=== PATIENT | female | born 1995 | race Caucasian/White ===

== ENCOUNTER 2017-09-09 00:29 | Emergency (ER) | payer MEDICAID, SELFPAY ==
[2017-09-09 00:30] VITALS: BP 152/87; PULSE 71; RESP 17; TEMP 36.4; O2SAT 100; BMI 30.4
[2017-09-09 01:15] LABS: Amphetamine Urine VISTA NEGATIVE (<1000 ng/mL); Barbiturate Urine VISTA NEGATIVE (< 200 ng/mL); Benzodiazepine Urine VISTA NEGATIVE (< 200 ng/mL); Cocaine Urine VISTA NEGATIVE (< 300 ng/mL); Ecstacy Urine VISTA NEGATIVE (< 500 ng/mL); Methadone Urine VISTA NEGATIVE (< 300 ng/mL); PCP Urine VISTA NEGATIVE (< 25 ng/mL); THC Urine VISTA NEGATIVE (< 50 ng/mL); Vista UDS pH Range 7
[2017-09-09 01:19] LABS: Absolute Lymphocyte Count 3.05 X10^3/ul (0.83-4.51); Absolute Neutrophil Count 1.6 X10^3/uL (2.0-7.7); Basophil# 0.04 X10^3/uL; Basophil% 0.7 % (0-1); Eosinophil# 0.38 X10^3/uL; Eosinophils% 6.6 % (0-5); Hemoglobin 15.2 g/dl (12.0-15.0); Lymphocyte # 3.05 X10^3/ul (4.0); Lymphocyte % 53.3 % (19-41); Mean Corp Hgb Conc 35.3 g/gl (32-36); Mean Corpuscular Hgb 31.7 pg (27.0-32.0); Mean Corpuscular Volume 89.6 fL (81-99); Mean Platelet Vol. 10.5 fl (6.2-12.0); Monocyte# 0.62 X10^3/uL; Monocyte% 10.8 % (0-10); Neutrophil # 1.62 X10^3/uL (2.7-7.7); Neutrophil % 28.4 % (47-70); POSITIVE COUNT NO; POSITIVE DIFFERENTIAL NO; POSITIVE MORPHOLOGY NO; Platelet Count 213 K/mm3 (150-450); RBC Distribution Width CV 12.2 % (11.6-14.6); RBC Distribution Width SD 39.3 fl (35.1-43.9); White Blood Count 5.7 K/mm3 (4.4-11.0)
[2017-09-09 01:37] LABS: Anion Gap 6 (5-15); BUN 15 mg/dL (7-18); BUN/Creat Ratio 16.4 RATIO (10-20); Chloride 105 mmol/L (98-107); Creatinine, Serum 0.92 mg/dL (0.55-1.02); EST Glomerular Filtration Rate 80 mL/min (>60); Est Glom Filt Rate - Afr Amer 97 mL/min (>60); Estimated Creatinine Clearance 89.03 ml/min; Glucose 89 mg/dL (74-106); Potassium 3.4 mmol/L (3.5-5.1); Sodium Level 142 mmol/L (136-145)
[2017-09-09 01:43] LABS: Alcohol, Blood (Medical)-Serum < 3.0 mg/dL
[2017-09-09 01:49] LABS: Valproic Acid (Depakene) Level 37 ug/mL (50-100)
[2017-09-09 01:51] LABS: Pregnancy, Serum, hCG Quali. NEGATIVE Negative (0-9 Nonpreg)
[2017-09-09 02:26] VITALS: BP 128/85; PULSE 93; O2SAT 97
--- NOTE | 2017-09-09 03:37 | ED.DCSUM_ITS ---
- ER Visit Summary Date of Service: 09/09/17 Chief Complaint: Suicidal ideation History of Present Illness: The patient is a [address] Farah and the counseling center. She reports that she has long-standing depression. She has had suicidal thoughts for the past week. She states that she would overdose if she did this. She has not taken anything at this time. She denies a specific plan to do this. Physical Examination: Vitals: Stable. Afebrile. General: Well-nourished and well-developed. Head: Normocephalic atraumatic. Neck: Supple, no lymphadenopathy. No JVD. Nontender. Cardiovascular: Regular rate and rhythm. No murmurs. Respiratory: No respiratory distress. Clear to auscultation bilaterally. Abdominal: Soft, nontender, nondistended, normal bowel sounds. No guarding, rebound, or peritoneal signs. Back: Nontender. Extremities: Nontender, no edema. Skin: Normal color, no rash. Neurologic: Alert and oriented ?3. Cranial nerves II through XII are intact. Normal strength and sensation. Mental status exam: Patient appears their stated age. Good posture and grooming. Good eye contact. Normal rate, volume, and latency of speech. No homicidal ideation. No auditory or visual hallucinations. Flow of thought is logical. Insight and judgment is fair. Test Results: CBC is marked for hemoglobin of 15.2, 7 neutrophils of 28, lymphs at the 53. Chem-7 her potassium 3.4. Depakote level is 37. Patency test is negative. Tox screen is negative. Blood alcohol level 0. Emergency Department Course and Treatment: She has rested comfortably without complaint in the emergency department. Treatment Plan: Patient was seen by the counseling center in the emergency department. They are familiar with her and able to contract for safety. She will be discharged instructions to follow-up tomorrow for a crisis evaluation. Return to emerge from for any worsening thoughts of harming herself. Disposition: To home in improved and stable condition. Impression: 1. Depression. 2. Autism. This note was generated with [employer] dictation software. It may contain incorrect words, spelling, and punctuation that were not noted in review of the chart prior to signing ED Disposition - Plan for ED Patient: Chief Complaint: Suicidal Instructions: ED Depression Referrals: Counseling,Center [GROUP OF PHYSICIANS] - Keep [facility] appointment
[2017-09-09 03:54] VITALS: BP 140/90; PULSE 65; PULSE 71; RESP 18; O2SAT 94
== END 2017-09-09 03:56 | disposition home or self-care (01) ==
PROVIDERS: Emergency Provider Emergency Medicine; Family Provider Internal Medicine; PCP Internal Medicine
DX: F32.9 Major depressive disorder, single episode, unspecified (principal); F84.0 Autistic disorder; F41.9 Anxiety disorder, unspecified; F20.9 Schizophrenia, unspecified; Z79.899 Other long term (current) drug therapy
CPT/HCPCS: 80048; 80164; 80307; 80320; 84703; 85025; 99283; G0480

== ENCOUNTER → 2017-11-11 10:42 | Outpatient (CLI) | payer MEDICAID, SELFPAY ==
[2017-11-11 11:38] LABS: Platelet Count 177 K/mm3 (150-450)
[2017-11-11 12:05] LABS: Valproic Acid (Depakene) Level 33 ug/mL (50-100)
[2017-11-11 12:06] LABS: AST(SGOT) 14 U/L (15-37); Alanine Aminotransfer ALT/SGPT 22 U/L (13-56)
== END ==
PROVIDERS: Family Provider Internal Medicine; PCP Internal Medicine; Visit Provider Psychiatry & Neurology Psychiatry
DX: Z79.899 Other long term (current) drug therapy (principal); F19.10 Other psychoactive substance abuse, uncomplicated; R53.83 Other fatigue
CPT/HCPCS: 36415; 80164; 84450; 84460; 85049

== ENCOUNTER → 2017-12-24 09:58 | Outpatient (CLI) | payer MEDICARE, MEDICAID, SELFPAY ==
[2017-12-24 11:05] LABS: Valproic Acid (Depakene) Level 68 ug/mL (50-100)
== END ==
PROVIDERS: Family Provider Internal Medicine; PCP Internal Medicine; Visit Provider Psychiatry & Neurology Psychiatry
DX: Z79.899 Other long term (current) drug therapy (principal)
CPT/HCPCS: 36415; 80164

== ENCOUNTER 2018-08-25 13:53 | Emergency (ER) | payer MEDICARE, MEDICAID, SELFPAY ==
[2018-05-23 13:28] VITALS: BMI 33.2
[2018-08-25 13:53] VITALS: BP 140/80; PULSE 91; RESP 14; TEMP 36.3; O2SAT 97; BMI 34.9
--- NOTE | 2018-08-25 14:11 | RAD_ITS ---
STUDY: X-RAY - LUMBAR SPINE REASON FOR EXAM: Female, 23 years old. Low back pain following a fall. TECHNIQUE: 3 view(s) of the lumbar spine were obtained. COMPARISON: None FINDINGS: There is straightening of the normal lumbar lordosis. There is no substantial scoliosis. There is a normal alignment of the vertebrae. Normal vertebral bodies and endplates. Normal disc space heights. Posterior angulation of the sacrococcygeal junction. The soft tissue structures are unremarkable. RAD/Lumbar Spine 2 or 3 Views IMPRESSION: There is straightening of the normal lumbar lordosis. Posterior angulation of the sacrococcygeal junction. Electronically Signed: Juventino Ramirez MD at 15:11 EST , Service support ,
--- NOTE | 2018-08-25 14:22 | ED.VISSUMM ---
- ER Visit Summary Date of Service: 08/25/18 Chief Complaint: [] Pain in the coccyx fall slipping on ice today History of Present Illness: The patient is a 23 F [] behavioral health disorders very stable she slipped on ice today landed directly on her bottom she has pain over her coccyx she finished her work duties today and came in for evaluation she has no numbness weakness paresthesias normal bowel bladder habits denies did not injure any other part of her body Physical Examination: [] v Signs are normal General, no distress resting comfortably HEENT is generally unremarkable The neck is supple no adenopathy Cardiovascular, regular rate and rhythm Lungs, clear bilateral Abdomen, soft nontender Extremities, no clubbing cyanosis or edema her back C-spine T-spine lumbar spine nontender she has a very nonspecific pain to the base of the coccygeal area her sacrum there is no bruising or contusion here her pelvis is stable she is able to stand and walk without difficulty she indicates she is able to execute normal work activities with any without any trouble today Neurologic, awake alert answering questions appropriately moving all 4 extremities Test Results: [] Emergency Department Course and Treatment: [] All the above x-rays were obtained that showed nothing acute explained all the above to her she started on Naprosyn she will follow-up with that medication her primary care physicians tomorrow return for change in symptoms Treatment Plan: [] Disposition: [] Home stable Impression: [] Coccygeal injury after fall This note was generated with [employer] dictation software. It may contain incorrect words, spelling, and punctuation that were not noted in review of the chart prior to signing ED Disposition - Plan for ED Patient: Referrals: Yaneli Farah MD [Primary Care Provider] -
--- NOTE | 2018-08-25 14:24 | ED.DEP ---
ED Disposition - Plan for ED Patient: Instructions: ED Sprain Strain Lumbar Prescriptions: Naproxen [Naprosyn] 500 mg PO BID PRN #20 tab Referrals: Yaneli Farah MD [Primary Care Provider] -
[2018-08-25] MEDS: Naproxen 500 MG Tablet PO (14:42)
[2018-08-25 15:46] VITALS: BP 155/103; PULSE 85; RESP 18; O2SAT 97
== END 2018-08-25 15:47 | disposition home or self-care (01) ==
PROVIDERS: Emergency Provider Emergency Medicine; Family Provider Internal Medicine; PCP Internal Medicine
DX: S39.92XA Unspecified injury of lower back, initial encounter (principal); W00.0XXA Fall on same level due to ice and snow, initial encounter; Y93.89 Activity, other specified; Y92.89 Other specified places as the place of occurrence of the external cause; Y99.8 Other external cause status; Z79.899 Other long term (current) drug therapy
CPT/HCPCS: 72100; 99283

== ENCOUNTER → 2018-11-02 | Outpatient (CLI) | payer MEDICARE, MEDICAID, SELFPAY ==
[2018-10-24 15:09] VITALS: BMI 35.1
[2018-11-02 14:10] LABS: Absolute Lymphocyte Count 2.29 X10^3/ul (0.83-4.51); Absolute Neutrophil Count 1.7 X10^3/uL (2.0-7.7); Basophil# 0.04 X10^3/uL; Basophil% 0.9 % (0-1); Eosinophil# 0.12 X10^3/uL; Eosinophils% 2.6 % (0-5); Hematocrit 45.6 % (37-47); Hemoglobin 15.2 g/dl (12.0-15.0); Lymphocyte # 2.29 X10^3/ul (4.0); Lymphocyte % 50.6 % (19-41); Mean Corp Hgb Conc 33.3 g/gl (32-36); Mean Corpuscular Hgb 31.5 pg (27.0-32.0); Mean Corpuscular Volume 94.4 fL (81-99); Mean Platelet Vol. 11.4 fl (6.2-12.0); Monocyte# 0.39 X10^3/uL; Monocyte% 8.6 % (0-10); Neutrophil # 1.69 X10^3/uL (2.7-7.7); Neutrophil % 37.3 % (47-70); Platelet Count 186 K/mm3 (150-450); RBC Distribution Width CV 12.1 % (11.6-14.6); Red Blood Count 4.83 M/mm3 (4.2-5.4); White Blood Count 4.5 K/mm3 (4.4-11.0)
[2018-11-02 14:13] LABS: POSITIVE COUNT NO; POSITIVE DIFFERENTIAL NO; POSITIVE MORPHOLOGY NO
[2018-11-02 14:19] LABS: Valproic Acid (Depakene) Level 71 ug/mL (50-100)
[2018-11-02 14:37] LABS: AST(SGOT) 21 U/L (15-37); Alanine Aminotransfer ALT/SGPT 40 U/L (13-56); Albumin, Serum 3.7 g/dL (3.2-5.0); Alkaline Phosphatase 79 U/L (45-117); Anion Gap 7 (5-15); BUN 12 mg/dL (7-18); BUN/Creat Ratio 12.8 RATIO (10-20); Chloride 106 mmol/L (98-107); Cholesterol 178 mg/dL (200); Creatinine, Serum 0.93 mg/dL (0.55-1.02); EST Glomerular Filtration Rate 78 mL/min (>60); Est Glom Filt Rate - Afr Amer 94 mL/min (>60); Globulin 3.7 g/dL (2.2-4.2); Glucose 86 mg/dL (74-106); High Density Lipoprotein 63 mg/dL; Potassium 3.9 mmol/L (3.5-5.1); Protein, Total 7.4 g/dL (6.4-8.2); Sodium Level 138 mmol/L (136-145); T4 Free Direct 0.96 ng/dL (0.76-1.46); Thyroid Stim Hormone (TSH) 1.25 uIU/mL (0.358-3.74); Triglycerides 199 mg/dL; Very Low Density Lipoprotein 40 mg/dL (5-40)
== END | disposition home or self-care (01) ==
LOC: BIMLAB 09:58
PROVIDERS: Family Provider Internal Medicine; PCP Internal Medicine; Visit Provider Internal Medicine
DX: E66.9 Obesity, unspecified (principal); I10 Essential (primary) hypertension; F25.9 Schizoaffective disorder, unspecified
CPT/HCPCS: 36415; 80053; 80061; 80164; 84439; 84443; 85025

== ENCOUNTER 2019-05-29 08:19 | Emergency (ER) | payer MEDICARE, MEDICAID, SELFPAY ==
[2019-05-05 11:14] VITALS: BMI 37.3
[2019-05-29 08:20] VITALS: BP 121/85; PULSE 71; RESP 17; TEMP 36.8; O2SAT 93; BMI 38.1
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
[2019-05-29 09:16] LABS: Absolute Lymphocyte Count 2.36 X10^3/uL (0.83-4.51); Absolute Neutrophil Count 2.4 X10^3/uL (2.0-7.7); Basophil# 0.04 X10^3/uL; Basophil% 0.7 % (0-1); Eosinophil# 0.07 X10^3/uL; Eosinophils% 1.3 % (0-5); Hematocrit 41.1 % (37-47); Hemoglobin 14.1 g/dL (12.0-15.0); Lymphocyte # 2.36 X10^3/ul (4.0); Lymphocyte % 43.8 % (19-41); Mean Corp Hgb Conc 34.3 g/dL (32-36); Mean Corpuscular Hgb 31.9 pg (27.0-32.0); Mean Platelet Vol. 10.5 fl (6.2-12.0); Monocyte# 0.49 X10^3/uL; Monocyte% 9.1 % (0-10); NRBC Flagged by Analyzer 0 % (0-5); Neutrophil # 2.42 X10^3/uL (2.7-7.7); Neutrophil % 44.9 % (47-70); Platelet Count 193 K/mm3 (150-450); RBC Distribution Width SD 41.3 fl (35.1-43.9); Red Blood Count 4.42 M/mm3 (4.2-5.4); White Blood Count 5.4 K/mm3 (4.4-11.0)
[2019-05-29 09:33] LABS: Internal QC Validated? YES +Cl - CLEAR BKGD; Pregnancy, Serum, hCG Quali. NEGATIVE Negative
[2019-05-29 09:34] LABS: Amphetamine Urine VISTA NEGATIVE (<1000 ng/mL); Barbiturate Urine VISTA NEGATIVE (< 200 ng/mL); Benzodiazepine Urine VISTA NEGATIVE (< 200 ng/mL); Cocaine Urine VISTA NEGATIVE (< 300 ng/mL); Ecstacy Urine VISTA NEGATIVE (< 500 ng/mL); Methadone Urine VISTA NEGATIVE (< 300 ng/mL); PCP Urine VISTA NEGATIVE (< 25 ng/mL); THC Urine VISTA NEGATIVE (< 50 ng/mL); Vista UDS pH Range 6
[2019-05-29 09:40] LABS: ALB/GLOB Ratio 0.9 RATIO (0.9-2.4); AST(SGOT) 13 U/L (15-37); Alanine Aminotransfer ALT/SGPT 24 U/L (13-56); Albumin, Serum 3.3 g/dL (3.2-5.0); Alkaline Phosphatase 79 U/L (45-117); Anion Gap 8 (5-15); BUN 11 mg/dL (7-18); Calcium,Total 8.7 mg/dL (8.5-10.1); Chloride 110 mmol/L (98-107); Creatinine, Serum 0.73 mg/dL (0.55-1.02); EST Glomerular Filtration Rate 103 mL/min (>60); Est Glom Filt Rate - Afr Amer 124 mL/min (>60); Estimated Creatinine Clearance 106.01 ml/min; Globulin 3.6 g/dL (2.2-4.2); Glucose 100 mg/dL (74-106); Potassium 3.9 mmol/L (3.5-5.1); Protein, Total 6.9 g/dL (6.4-8.2); Sodium Level 142 mmol/L (136-145); Thyroid Stim Hormone (TSH) 2.43 uIU/mL (0.358-3.74)
--- NOTE | 2019-05-29 09:42 | NURSING ---
CALLED [facility], TALKED TO [facility]. THEY WILL SEND SOMEONE OVER
[2019-05-29 09:45] LABS: Alcohol, Blood (Medical)-Serum < 3.0 mg/dL
--- NOTE | 2019-05-29 10:05 | ED.RN ---
[facility] called and verifies enroute.
--- NOTE | 2019-05-29 10:29 | NURSING ---
[facility], [facility], here
[2019-05-29 10:37] VITALS: RESP 20
[2019-05-29 11:42] VITALS: RESP 18
== END 2019-05-29 11:43 | disposition home or self-care (01) ==
PROVIDERS: Emergency Provider Emergency Medicine; Family Provider Internal Medicine; PCP Internal Medicine
DX: R44.0 Auditory hallucinations (principal); F43.8 Other reactions to severe stress; F29 Unspecified psychosis not due to a substance or known physiological condition; F41.9 Anxiety disorder, unspecified; F32.9 Major depressive disorder, single episode, unspecified; F84.0 Autistic disorder; I10 Essential (primary) hypertension; Z79.899 Other long term (current) drug therapy
CPT/HCPCS: 80053; 80307; 80320; 84443; 84703; 85025; 99283; G0480

== ENCOUNTER → 2019-08-29 10:17 | Outpatient (CLI) | payer MEDICARE, MEDICAID, SELFPAY ==
[2019-08-11 10:53] VITALS: BMI 38.2
[2019-08-29 12:16] LABS: Platelet Count 230 K/mm3 (150-450)
[2019-08-29 12:43] LABS: Valproic Acid (Depakene) Level 49 ug/mL (50-100)
[2019-08-29 14:05] LABS: AST(SGOT) 12 U/L (15-37); Alanine Aminotransfer ALT/SGPT 24 U/L (13-56); Cholesterol 189 mg/dL (200); High Density Lipoprotein 64 mg/dL; Prolactin 21.9 ng/mL; Triglycerides 163 mg/dL; Very Low Density Lipoprotein 33 mg/dL (5-40)
== END ==
PROVIDERS: PCP Internal Medicine; Referring Provider Psychiatry & Neurology Psychiatry; Visit Provider Psychiatry & Neurology Psychiatry
DX: F19.10 Other psychoactive substance abuse, uncomplicated (principal); R53.83 Other fatigue; Z79.899 Other long term (current) drug therapy
CPT/HCPCS: 36415; 80061; 80164; 82140; 83036; 84146; 84450; 84460; 85049

== ENCOUNTER → 2020-02-07 10:14 | Outpatient (CLI) | payer MEDICARE, MEDICAID, SELFPAY ==
[2020-01-17 15:50] VITALS: BMI 38.1
[2020-02-07 11:04] LABS: Platelet Count 198 K/mm3 (150-450)
[2020-02-07 11:14] LABS: AST(SGOT) 21 U/L (15-37); Alanine Aminotransfer ALT/SGPT 49 U/L (13-56)
[2020-02-07 11:20] LABS: Valproic Acid (Depakene) Level 85 ug/mL (50-100)
[2020-02-07 15:52] LABS: Bacteria 0 SEEN /hpf (None Seen); Mucous, Urine 0 SEEN /hpf (<or=2+); Red Blood Cells-Urine 0 SEEN /hpf (0-5); White Blood Cells 0 SEEN /hpf (0-5)
[2020-02-07 15:59] LABS: Absolute Lymphocyte Count 2.48 X10^3/uL (0.83-4.51); Absolute Neutrophil Count 2.3 X10^3/uL (2.0-7.7); Basophil# 0.06 X10^3/uL; Basophil% 1.1 % (0-1); Eosinophil# 0.27 X10^3/uL; Eosinophils% 4.8 % (0-5); Hematocrit 41.4 % (37-47); Hemoglobin 13.5 g/dL (12.0-15.0); Lymphocyte # 2.48 X10^3/ul (4.0); Lymphocyte % 43.7 % (19-41); Mean Corp Hgb Conc 32.6 g/dL (32-36); Mean Corpuscular Hgb 31.5 pg (27.0-32.0); Mean Corpuscular Volume 96.7 fL (81-99); Monocyte# 0.53 X10^3/uL; Monocyte% 9.3 % (0-10); NRBC Flagged by Analyzer 0 % (0-5); Neutrophil # 2.32 X10^3/uL (2.7-7.7); Neutrophil % 40.7 % (47-70); Platelet Count 242 K/mm3 (150-450); RBC Distribution Width SD 41.7 fl (35.1-43.9); Red Blood Count 4.28 M/mm3 (4.2-5.4); White Blood Count 5.7 K/mm3 (4.4-11.0)
[2020-02-07 16:16] LABS: Anion Gap 5 (5-15); BUN 12 mg/dL (7-18); BUN/Creat Ratio 15.4 RATIO (10-20); Calcium,Total 8.9 mg/dL (8.5-10.1); Chloride 107 mmol/L (98-107); Creatinine, Serum 0.78 mg/dL (0.55-1.02); EST Glomerular Filtration Rate 95 mL/min (>60); Est Glom Filt Rate - Afr Amer 115 mL/min (>60); Glucose 100 mg/dL (74-106); Potassium 4.1 mmol/L (3.5-5.1); Sodium Level 140 mmol/L (136-145)
[2020-02-07 17:18] LABS: Color, Urine Yellow (Yellow); Glucose, Dipstick Normal (Normal); Ketone-Dipstick 5 mg/dl (Negative); Leukocyte Esterase-Dipstick Negative /ul (Negative); Nitrite-Dipstick Negative (Negative); Occult Blood-Urine Negative /ul (Negative); Protein-Dipstick Negative (Negative); Specific Gravity, Urine 1.015 (1.002-1.030); Urine Bilirubin Dipstick Negative (Negative); Urine Clarity Cloudy (Clear); Urine Urobilinogen Normal (Normal)
[2020-02-07 17:36] LABS: Amorphous Sediment 1+; Squamous Epithelial Cells - UA 0-5 SEEN /hpf (5-10)
== END ==
PROVIDERS: PCP Internal Medicine; Referring Provider Psychiatry & Neurology Psychiatry; Visit Provider Psychiatry & Neurology Psychiatry
DX: F19.10 Other psychoactive substance abuse, uncomplicated (principal); R53.83 Other fatigue; M79.651 Pain in right thigh; Z79.899 Other long term (current) drug therapy
CPT/HCPCS: 36415; 80048; 80164; 81001; 82140; 84450; 84460; 85025; 85049; 97110

== ENCOUNTER 2020-02-15 16:00 | Outpatient (RCR) | payer MEDICARE, MEDICAID, SELFPAY ==
[2020-01-17 15:50] VITALS: BMI 38.1
--- NOTE | 2020-01-24 16:51 | HP.PTEVAL_ITS ---
Patient's Visit Information JUAN RAZA is a 25 year old F referred to Physical Therapy by Dr. Yaneli Farah MD with a diagnosis of Thigh Pain. Date of Evaluation: 01/24/20 Physical Therapist: Marielos Michael DPT - Visit Plan Frequency: 2x /Week Duration: 4 Weeks Plan: Focus on core strength/stabilization- Possible need for extension bias exercise - Subjective Right thigh has been cramping a lot for a couple of months- the pain started in her thigh and has no moved to the calf. The pain comes and goes. Eases: walking Agg: sitting and then standing. Normally when she walks it doesnt bother her but sitting does. She has no back pain. The whole back of the leg bothers her. Feels she pulled her thigh when running- but she is unsure- she might have been sprinting and it bothered her. Worst: 8/10 Best: 10. When s he laying down she has no pain at all. Sleep: not disturbed. Workout: ellip, cardio and arm/ab weights- 3-5x a week- at [employer] or at home- she walks and dances a lot too. No N/T in the leg. Describes the pain as cramping, throbbing, burning pain. If she lays down or gets up the pain goes away immediatly. Sits a lot during the day. Work: does not work. 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 No problems with stairs. PMHX/Meds: scanned in chart. - Objective Posture: FH, RS- increased lumbar lordosis in standing- sitting slumped posture. Gait: no deviation noted. HR/TR: able. SLS: 10 sec then LOB. Senstion/Reflex: WNL. ROM: WNL in all planes-hip, knee,ankle lumber: flexion: hands to knees with pain, extn: WNL, SB/ROT: WNL. Strength: Ankle: 5/5, Knee: 4+/5 Hip: 4-/5 throughout with signficant discomfort with testing. Flex: HS: severe, Gastroc: severe. Palpatoin: tender along parapsinals of the lumber spine, gluts, greater troch and hamstring. Special Test: Slump: positive, Dural signs: positive on the right, Extension: diminishes symptoms- Flexion: increasese s/s - Goals Goal 1:: Patient will be I with HEP and progression Goal Time Frame: 4-6 Weeks Goal 2:: Patient will maintain proper posture t/o tx session to demo increased core s/s Goal Time Frame: 4-6 Weeks Goal 3:: Patient will report no radiating s/s down her right leg Goal Time Frame: 4-6 Weeks - Rehabilitation Potential Physical Therapy Diagnosis: Patient presents with hypomobility- she has decreased strength, flex, muscular endurance leading to poor posture and increased radiating pain. Rehabilitation Potential: Fair - Anticipated Interventions Patient/Client Instruction: Educate patient on: Benefits of Fitness Program Therapeutic Exercise to Include: Strength training, Endurance training, Balance training, Coordination, Agility training, Body mechanics, Postural training, Flexibilty training, Gait and locomotor training, Neuromotor development, Passive ROM, Active ROM, Dynamic Lumbar Stabilization, Marcos Exercises, Scapular Strength/Stabilization TENS: Yes Cryotherapy (ice pack, ice massage): Yes Thermo therapy (hot pack): Yes Ultrasound (thermal/non thermal): Yes Thank you for the opportunity to evaluate your patient. For Medicare and Medicare HMO plans, please review the plan of care and approve it. It will need to be FAXED BACK to us at [phone] for Medicare purposes. For Medicare only, by signing this I certify the plan of care. Please let me know if there are questions or concerns regarding this plan of care. Physician Signature: Date:
--- NOTE | 2020-04-01 16:36 | HP.PT.NRP ---
JUAN RAZA was seen in my office for initial evaluation on 01/24/20. The following Plan of Care was established for this patient: Initial Frequency: 2x /Week Initial Duration: 4 Weeks Patient/Client Instruction: Educate patient on: Benefits of Fitness Program Therapeutic Exercise to Include: Strength training, Endurance training, Balance training, Coordination, Agility training, Body mechanics, Postural training, Flexibilty training, Gait and locomotor training, Neuromotor development, Passive ROM, Active ROM, Dynamic Lumbar Stabilization, Marcos Exercises, Scapular Strength/Stabilization TENS: Yes Cryotherapy (ice pack, ice massage): Yes Thermo therapy (hot pack): Yes Ultrasound (thermal/non thermal): Yes This patient was last seen in our office . Pertinent comments regarding their Physical therapy will appear below: Patient has not returned to PT in over 6 weeks- appropriate for d/c and return to MD for further evaluation as needed. At this point I will be discontinuing this patient from physical therapy. I would be happy to see this patient again in the future if found appropriate by the physician. Thank you! ROSLYN HinsonT
== END 2020-02-15 19:00 | disposition home or self-care (01) ==
LOC: PT 16:00
PROVIDERS: PCP Internal Medicine; Referring Provider Internal Medicine; Visit Provider Internal Medicine
DX: M79.651 Pain in right thigh (principal)
CPT/HCPCS: 97035; 97110; 97162

== ENCOUNTER 2020-03-06 17:09 | Emergency (ER) | payer MEDICARE, MEDICAID, SELFPAY ==
[2020-02-07 15:19] VITALS: BMI 38.1
[2020-03-06 17:09] VITALS: BP 144/92; PULSE 67; RESP 15; TEMP 36.7; O2SAT 98; BMI 38.8
[2020-03-06 17:51] LABS: Absolute Lymphocyte Count 2.61 X10^3/uL (0.83-4.51); Absolute Neutrophil Count 4.1 X10^3/uL (2.0-7.7); Basophil# 0.05 X10^3/uL; Basophil% 0.7 % (0-1); Eosinophil# 0.14 X10^3/uL; Eosinophils% 1.9 % (0-5); Hematocrit 42.7 % (37-47); Hemoglobin 14.8 g/dL (12.0-15.0); Lymphocyte # 2.61 X10^3/ul (4.0); Lymphocyte % 34.8 % (19-41); Mean Corp Hgb Conc 34.7 g/dL (32-36); Mean Corpuscular Hgb 32.5 pg (27.0-32.0); Mean Corpuscular Volume 93.6 fL (81-99); Monocyte# 0.58 X10^3/uL; Monocyte% 7.7 % (0-10); NRBC Flagged by Analyzer 0 % (0-5); Neutrophil # 4.08 X10^3/uL (2.7-7.7); Neutrophil % 54.5 % (47-70); Platelet Count 250 K/mm3 (150-450); RBC Distribution Width CV 11.7 % (11.6-14.6); Red Blood Count 4.56 M/mm3 (4.2-5.4); White Blood Count 7.5 K/mm3 (4.4-11.0)
[2020-03-06 18:05] LABS: Amphetamine Urine VISTA NEGATIVE (<1000 ng/mL); Barbiturate Urine VISTA NEGATIVE (< 200 ng/mL); Benzodiazepine Urine VISTA NEGATIVE (< 200 ng/mL); Cocaine Urine VISTA NEGATIVE (< 300 ng/mL); Ecstacy Urine VISTA NEGATIVE (< 500 ng/mL); Methadone Urine VISTA NEGATIVE (< 300 ng/mL); PCP Urine VISTA NEGATIVE (< 25 ng/mL); THC Urine VISTA NEGATIVE (< 50 ng/mL); Vista UDS pH Range 7
[2020-03-06 18:06] LABS: Anion Gap 5 (5-15); BUN 17 mg/dL (7-18); BUN/Creat Ratio 20.8 RATIO (10-20); Calcium,Total 9.4 mg/dL (8.5-10.1); Chloride 109 mmol/L (98-107); Creatinine, Serum 0.82 mg/dL (0.55-1.02); EST Glomerular Filtration Rate 90 mL/min (>60); Est Glom Filt Rate - Afr Amer 108 mL/min (>60); Estimated Creatinine Clearance 97.33 ml/min; Glucose 85 mg/dL (74-106); Potassium 3.5 mmol/L (3.5-5.1); Sodium Level 140 mmol/L (136-145)
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
[2020-03-06 18:27] VITALS: RESP 16
[2020-03-06 18:28] LABS: Internal QC Validated? YES +Cl - CLEAR BKGD; Pregnancy, Serum, hCG Quali. NEGATIVE Negative
[2020-03-06 18:30] LABS: Alcohol, Blood (Medical)-Serum < 3.0 mg/dL
[2020-03-06 18:52] LABS: Probe Check PASS; Specimen Processing Control PASS
[2020-03-06 19:03] VITALS: RESP 16
--- NOTE | 2020-03-06 19:30 | CM.ED ---
SOCIAL WORK Referral called and faxed to [facility]. Awaiting acceptance at this time. Ariane Knott, MANAGER IMMUNOLOGY, DIGITAL CAMERA TECHNICIAN
--- NOTE | 2020-03-06 19:34 | ED.VISSUMM ---
- ER Visit Summary Date of Service: 03/06/20 Chief Complaint: Hearing voices and suicidal ideation History of Present Illness: The patient is a 25 F 3 of schizoaffective disorder and autism. Also hypertension. Patient states she has been hearing voices for the last several weeks. They are telling her either overdose or to cut herself. She has had a prior suicide attempt years ago. She has had prior psychiatric admissions. She denies any actual attempt at this time. Physical Examination: Young female no acute distress vital signs stable afebrile. Does not look septic or toxic. H EENT exam normal. Pupils are unreactive light. No signs of trauma. No smell of alcohol. No signs of toxidrome. Neck nontender. No trauma. No lymphadenopathy. Lungs clear to auscultation bilaterally. Heart regular rhythm no murmur. Rate about 65. Chest were nontender. Abdomen soft nontender. No signs of trauma. Extremities moves all 4. Neurovascular intact. Nontender. No lacerations. Normal range of motion and motor strength. Back nontender. Neurologically she is awake and alert with no focal motor deficits. Test Results: CBC unremarkable white count of 7. Hemoglobin 14. Chemistries unremarkable normal creatinine gap. Serum test negative. Tox screen negative. Alcohol level negative. COVID test negative. Emergency Department Course and Treatment: ED mental health evaluation. commissary worker is also talk to the patient. She is going to be transferred to a psychiatric facility. Treatment Plan: Transfer to a psychiatric facility. Repeat exam patient is doing well at 1930 3 PM. Disposition: Answered a psychiatric facility Impression: Acute on chronic psychiatric illness Auditory elucidation's Suicidal ideation History of schizoaffective disorder This note was generated with [employer] dictation software. It may contain incorrect words, spelling, and punctuation that were not noted in review of the chart prior to signing ED Disposition - Plan for ED Patient: Referrals: Brando Diaz MD [Primary Care Provider] -
[2020-03-06 20:13] VITALS: RESP 18
--- NOTE | 2020-03-06 20:37 | CM.ED ---
SOCIAL WORK Call from Maurizio with [facility]. Patient accepted by Dr. Rangel to the [facility] unit. Nurse to call report to . [facility] [employer] to set up transport. Staff patient and patient's mother alejandro. Ariane Knott, PLATE MOLDER, GANG MOWER OPERATOR
[2020-03-06 21:47] VITALS: BP 144/98; PULSE 80; RESP 15; O2SAT 99
[2020-03-06 22:03] VITALS: RESP 14
== END 2020-03-07 00:11 | disposition home or self-care (01) ==
LOC: ED 18:30
PROVIDERS: Emergency Provider Emergency Medicine; PCP Family Medicine
DX: R45.851 Suicidal ideations (principal); I10 Essential (primary) hypertension
CPT/HCPCS: 80048; 80307; 80320; 84703; 85025; 87635; 99282; G0480; U0003

== ENCOUNTER 2020-08-11 02:32 | Emergency (ER) | payer MEDICARE, MEDICAID, SELFPAY ==
[2020-08-11 02:33] VITALS: BP 155/95; PULSE 63; RESP 16; TEMP 36.6; O2SAT 98; BMI 40.6
--- NOTE | 2020-08-11 02:46 | ED.DCSUM_ITS ---
- ER Visit Summary Date of Service: 08/11/20 Chief Complaint: Suicidal and homicidal thoughts History of Present Illness: The patient is a 25 F who presents with homicidal thoughts as well as some passive suicidal thoughts. She states that they got worse today. She states that she has been having more bad days recently. She keeps telling me she points to let go of the past. She talks about past roommates and classmates and about how she wants to hurt them. She also has voices telling her to kill herself. She has been hospitalized previously for this issue. Her last one was April 2020. She has a history of schizoaffective disorder. She states that she has been taking her medications but it sounds like she has been taking them irregularly. Physical Examination: Vital signs reviewed. HEENT exam unremarkable. Heart is regular rate and rhythm without murmurs. Lungs are clear to auscultation. Abdomen is soft and nontender. Extremities reveal no edema. Skin exam normal. Neurologic exam normal. The patient does have a flat affect. She does voice suicidal and homicidal thoughts. Her insight and judgment are poor. Test Results: Laboratory studies, , toxicology and alcohol are unremarkable Emergency Department Course and Treatment: Patient was evaluated by crisis. We both feel that due to the patient's command hallucinations that she should be transferred to a psychiatric facility. Patient is awaiting transfer at this time. Treatment Plan: [] Disposition: Transfer Impression: Suicidal ideation, command hallucinations, homicidal ideation This note was generated with [employer] dictation software. It may contain incorrect words, spelling, and punctuation that were not noted in review of the chart prior to signing ED Disposition - Plan for ED Patient: Referrals: Brando Diaz MD [Primary Care Provider] -
[2020-08-11 03:11] LABS: Absolute Lymphocyte Count 3.52 X10^3/uL (0.83-4.51); Absolute Neutrophil Count 2.3 X10^3/uL (2.0-7.7); Basophil# 0.04 X10^3/uL; Basophil% 0.6 % (0-1); Eosinophil# 0.12 X10^3/uL; Eosinophils% 1.9 % (0-5); Hematocrit 41.7 % (37-47); Hemoglobin 13.9 g/dL (12.0-15.0); Lymphocyte # 3.52 X10^3/ul (4.0); Lymphocyte % 54.3 % (19-41); Mean Corp Hgb Conc 33.3 g/dL (32-36); Mean Corpuscular Hgb 30.6 pg (27.0-32.0); Mean Corpuscular Volume 91.9 fL (81-99); Mean Platelet Vol. 11.2 fl (6.2-12.0); Monocyte# 0.54 X10^3/uL; Monocyte% 8.3 % (0-10); NRBC Flagged by Analyzer 0 % (0-5); Neutrophil # 2.25 X10^3/uL (2.7-7.7); Neutrophil % 34.7 % (47-70); Platelet Count 222 K/mm3 (150-450); RBC Distribution Width CV 12.3 % (11.6-14.6); RBC Distribution Width SD 40.9 fl (35.1-43.9); Red Blood Count 4.54 M/mm3 (4.2-5.4); White Blood Count 6.5 K/mm3 (4.4-11.0)
[2020-08-11 03:28] LABS: Amphetamine Urine VISTA NEGATIVE (<1000 ng/mL); Barbiturate Urine VISTA NEGATIVE (< 200 ng/mL); Benzodiazepine Urine VISTA NEGATIVE (< 200 ng/mL); Cocaine Urine VISTA NEGATIVE (< 300 ng/mL); Ecstacy Urine VISTA NEGATIVE (< 500 ng/mL); Methadone Urine VISTA NEGATIVE (< 300 ng/mL); PCP Urine VISTA NEGATIVE (< 25 ng/mL); THC Urine VISTA NEGATIVE (< 50 ng/mL); Vista UDS pH Range 5
[2020-08-11 03:31] LABS: Anion Gap 7 (5-15); BUN 18 mg/dL (7-18); BUN/Creat Ratio 22.5 RATIO (10-20); Calcium,Total 9.6 mg/dL (8.5-10.1); Chloride 105 mmol/L (98-107); EST Glomerular Filtration Rate 92 mL/min (>60); Est Glom Filt Rate - Afr Amer 111 mL/min (>60); Estimated Creatinine Clearance 95.89 ml/min; Glucose 97 mg/dL (74-106); Potassium 3.5 mmol/L (3.5-5.1); Sodium Level 140 mmol/L (136-145)
[2020-08-11 03:36] LABS: Internal QC Validated? YES +Cl - CLEAR BKGD; Pregnancy, Serum, hCG Quali. NEGATIVE Negative
[2020-08-11 04:02] VITALS: RESP 15
[2020-08-11 04:16] LABS: Alcohol, Blood (Medical)-Serum < 3.0 mg/dL
--- NOTE | 2020-08-11 04:33 | ED.RN ---
CALLED CRISIS AND FAXED THE PAPER WORK TO CRISIS. CRISIS CALLED TO EVALUATE THE PATIENT.
[2020-08-11 06:07] VITALS: BP 135/76; PULSE 80; RESP 16; O2SAT 98
--- NOTE | 2020-08-11 10:32 | NURSING ---
PER CRISIS; TOUCHING BASE WITH [facility] TO SEE WHAT PROGRESS HAS BEEN MADE ON ACCEPTANCE OF PT. WILL CALL US WITH AN UPDATE.
[2020-08-11 11:03] VITALS: BP 150/69; PULSE 88; RESP 16; O2SAT 99
== END 2020-08-11 11:17 ==
PROVIDERS: Emergency Provider Emergency Medicine; PCP Family Medicine
DX: R45.851 Suicidal ideations (principal); R45.850 Homicidal ideations; I10 Essential (primary) hypertension; F25.9 Schizoaffective disorder, unspecified
CPT/HCPCS: 36415; 80048; 80307; 82077; 84703; 85025; 87426; 99285

== ENCOUNTER 2021-01-01 13:58 | Emergency (ER) | payer MEDICARE, MEDICAID, SELFPAY ==
[2021-01-01 14:00] VITALS: BP 136/92; PULSE 90; RESP 16; TEMP 36.1; O2SAT 97; BMI 34.8
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
--- NOTE | 2021-01-01 14:25 | ED.RN ---
PT IS NOT CURRENTLY SUICIDAL PER ED MD, NO SITTER NEEDED.
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
[2021-01-01 14:46] LABS: Absolute Lymphocyte Count 1.79 X10^3/uL (0.83-4.51); Absolute Neutrophil Count 1.6 X10^3/uL (2.0-7.7); Basophil# 0.03 X10^3/uL; Basophil% 0.7 % (0-1); Eosinophil# 0.03 X10^3/uL; Eosinophils% 0.7 % (0-5); Hematocrit 40.3 % (37-47); Lymphocyte # 1.79 X10^3/ul (0.83-4.51); Lymphocyte % 43.4 % (19-41); Mean Corp Hgb Conc 34.7 g/dL (32-36); Mean Corpuscular Hgb 31.5 pg (27.0-32.0); Mean Corpuscular Volume 90.8 fL (81-99); Mean Platelet Vol. 10.7 fl (6.2-12.0); Monocyte# 0.64 X10^3/uL; Monocyte% 15.5 % (0-10); NRBC Flagged by Analyzer 0 % (0-5); Neutrophil # 1.62 X10^3/uL (2.7-7.7); Neutrophil % 39.5 % (47-70); Platelet Count 217 K/mm3 (150-450); RBC Distribution Width CV 11.9 % (11.6-14.6); RBC Distribution Width SD 39.7 fl (35.1-43.9); Red Blood Count 4.44 M/mm3 (4.2-5.4); White Blood Count 4.1 K/mm3 (4.4-11.0)
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
[2021-01-01 14:55] LABS: Anion Gap 10 (5-15); BUN 11 mg/dL (7-18); BUN/Creat Ratio 16.5 RATIO (10-20); Calcium,Total 9.1 mg/dL (8.5-10.1); Chloride 109 mmol/L (98-107); Creatinine, Serum 0.67 mg/dL (0.55-1.02); EST Glomerular Filtration Rate 113 mL/min (>60); Est Glom Filt Rate - Afr Amer 136 mL/min (>60); Estimated Creatinine Clearance 119.12 ml/min; Glucose 96 mg/dL (74-106); Potassium 3.5 mmol/L (3.5-5.1); Sodium Level 142 mmol/L (136-145)
[2021-01-01 15:00] LABS: Amphetamine Urine VISTA NEGATIVE (<1000 ng/mL); Barbiturate Urine VISTA NEGATIVE (< 200 ng/mL); Benzodiazepine Urine VISTA NEGATIVE (< 200 ng/mL); Cocaine Urine VISTA NEGATIVE (< 300 ng/mL); Ecstacy Urine VISTA NEGATIVE (< 500 ng/mL); Methadone Urine VISTA NEGATIVE (< 300 ng/mL); PCP Urine VISTA NEGATIVE (< 25 ng/mL); THC Urine VISTA NEGATIVE (< 50 ng/mL); Vista UDS pH Range 8
[2021-01-01 15:20] LABS: Alcohol, Blood (Medical)-Serum < 3.0 mg/dL
[2021-01-01 15:32] LABS: Internal QC Validated? YES +Cl - CLEAR BKGD; Pregnancy, Serum, hCG Quali. NEGATIVE Negative
--- NOTE | 2021-01-01 15:46 | ED.RN ---
Patient c/o keyur and seeing shadow people telling her she did bad things 16 years ago and does not deserve to get better. States there is an 11-year-old girl and she states she wont tell me what that one is saying. She says they are frightening to her and is requesting a visitor. We have contact info for her mother, Karin. at [phone]. Mom says she will call her to see what they can work out a then one of them will be with her.
[2021-01-01 15:50] VITALS: RESP 16
--- NOTE | 2021-01-01 15:56 | CM.ED ---
SOCIAL WORK Call to [facility] to check on bed availability. Intake reports at capacity. Call to [facility]. Intake reports will review. Will fax referral once patient is medically cleared. Ariane Knott MSW, BUSINESS LIBRARIAN
--- NOTE | 2021-01-01 16:03 | EKG12_ITS ---
Test Reason : MEDICAL CLEARANCE Blood Pressure : / mmHG Vent. Rate : 070 BPM Atrial Rate : 070 BPM P-R Int : 142 ms QRS Dur : 082 ms QT Int : 430 ms P-R-T Axes : 018 032 -34 degrees QTc Int : 464 ms Normal sinus rhythm with sinus arrhythmia T wave abnormality, consider ischemia: Anterior -Lateral-Inferior Prolonged QT Abnormal ECG Confirmed by RASHMI AVITIA, JOANIE ([id number]), desk editor ZAIDA REYES ([id number]) on 01/08/2021 1:05:39 PM Referred By: ANTHONY Confirmed By:JOANIE CARABALLO MD
--- NOTE | 2021-01-01 16:09 | NURSING ---
NO OLD EKGS
--- NOTE | 2021-01-01 16:36 | CM.ED ---
SOCIAL WORK Referral has been faxed to [facility]. Pending review at this time. Ariane Knott, INSPECTOR OF DREDGING, HARNESS PREPARER
[2021-01-01 17:04] VITALS: RESP 17
--- NOTE | 2021-01-01 17:24 | CM.ED ---
SOCIAL WORK Call to [facility] to check on status of referral. Per intake, do not have discharges until tomorrow. Referral called and faxed to [facility]. Pending review at this time. Ariane Knott, DRIVER LICENSE TECHNICIAN, CHIEF BUSINESS OFFICER
[2021-01-01 17:28] VITALS: BP 145/92; PULSE 74; RESP 16; TEMP 36.6; O2SAT 100
--- NOTE | 2021-01-01 18:21 | CM.ED ---
SOCIAL WORK Call to [facility] to check on status of referral. farmworker dairy out of the office at this time. Requesting call back in 20 minutes. Ariane Knott, BREWERY CELLAR WORKER, GEOGRAPHY INSTRUCTOR
--- NOTE | 2021-01-01 19:11 | CM.ED ---
SOCIAL WORK Call to [facility] to check on status of referral. Per Intake, due to staffing unable to accept patient until 7am. Call to [facility]. Intake reports beds available this evening. Referral faxed at this time. Ariane Knott MSW, MOLDING MACHINE SETTER
[2021-01-01 20:17] VITALS: RESP 17
--- NOTE | 2021-01-01 20:45 | CM.ED ---
SOCIAL WORK Patient accepted to [facility] by Dr. Cota to [address] [place] [address]. Nurse to call report to [phone]. [employer] Sales Representative to set up transport. Staff updated. Plan: [facility] Ariane Knott MSW, TRACK LAYING EQUIPMENT OPERATOR
--- NOTE | 2021-01-01 21:24 | ED.RN ---
per pt's request, pt's keys were given to her father.
[2021-01-01 22:49] VITALS: RESP 17
== END 2021-01-01 22:40 ==
PROVIDERS: Emergency Provider Emergency Medicine; PCP Family Medicine
DX: F29 Unspecified psychosis not due to a substance or known physiological condition (principal); F25.9 Schizoaffective disorder, unspecified; F32.9 Major depressive disorder, single episode, unspecified; F41.9 Anxiety disorder, unspecified; Z79.899 Other long term (current) drug therapy; Z79.84 Long term (current) use of oral hypoglycemic drugs
CPT/HCPCS: 80048; 80307; 82077; 84703; 85025; 87426; 93005; 99285

== ENCOUNTER 2021-06-15 02:08 | Emergency (ER) | payer MEDICARE, SELFPAY ==
[2021-06-15 02:13] VITALS: BP 145/85; PULSE 78; RESP 17; TEMP 37; O2SAT 98; BMI 37.1
--- NOTE | 2021-06-15 02:22 | EDS_ITS ---
HPI HPI - Psych History of Present Illness Chief Complaint: Mental Health Informant: patient Narrative Narrative: Presents by private vehicle history of schizoaffective disorder, anxiety and depression presents increasing auditory and visual hallucinations patient followed by psychiatry Dr. Appiah. Last seen 2 months ago states she has quarterly visits. She is on Abilify Depakote and lorazepam. She states she is taking her medications. Reports multiple auditory hallucinations voices stating the world is better without you. Also Covid would end with you gone. Also stating Kwesi hates you, God hates you. States this evening she saw vision of a spirit of a person she saw on a documentary of [employer] in [place]. She states she is afraid the spirits and voices. She denies any alcohol or any recreational drug use. She reports her last hospitalization was January at [facility]. Patient reports she feels she needs hospitalization. Prior similar symptoms: Yes PFSH PFSH Medical History Anxiety Autism Depression Dermatitis Schizoaffective disorder, unspecified condition Home Medications divalproex 500 mg PO BID 08/11/20 [History Last Taken Unknown] metformin 500 mg PO BID 08/11/20 [History Last Taken Unknown] norgestimate-ethinyl estradiol 1 ea PO DAILY 08/11/20 [History Last Taken Unknown] aripiprazole 10 mg PO DAILY 01/01/21 [History Last Taken Unknown] propranolol 60 mg capsule,24 hr,extended release 60 mg PO DAILY #30 cap 01/17/21 [Rx Last Taken Unknown] Allergy/AdvReac Type Severity Reaction Status Date / Time cat dander Allergy Unknown Unknown Verified 06/15/21 02:13 milk AdvReac Other Verified 06/15/21 02:13 Family History Grandmother Diabetes PGM and MGM Hypertension Aunt Cancer thyroid Grandfather Hypertension CVA (cerebral vascular accident) Social History Smoking Status: Never smoker alcohol intake: current alcohol intake frequency: holidays/special occasions only what type of physical activity do you participate in: running and aerobics frequency: 3-4 times per week ROS ROS ED Constitutional Constitutional ED: Denies chills, fever(s) or sweats Eyes Eyes: Denies change in vision ENT ENT ED: Denies dysphagia or sore throat Cardiovascular Cardiovascular: Denies chest pain, leg edema, palpitations or racing heartbeat Respiratory/Chest Respiratory/Chest: Denies cough, dyspnea or dyspnea on exertion Gastrointestinal Gastrointestinal: Denies abdominal pain, diarrhea, nausea or vomiting Genitourinary Genitourinary ED: Denies dysuria, hematuria or urinary frequency Musculoskeletal Musculoskeletal: Denies back pain, extremity pain or neck pain Integumentary Denies rash or wounds Neurologic Neurologic: Denies headache(s), paresthesias or weakness Psychiatric Psychiatric: Reports other Details: Auditory and visual hallucinations. ; Denies suicidal ideation or suicidal thoughts EXAM Physical Exam Const Vital Signs: 06/15/21 02:13 06/15/21 04:21 06/15/21 05:08 Temperature 98.6 F Temperature Source Temporal Pulse Rate 78 Respiratory Rate 17 18 16 Blood Pressure 145/85 H Blood Pressure Mean 105 Pulse Ox 98 Oxygen Delivery Method Room Air 06/15/21 06:08 Temperature Temperature Source Pulse Rate 62 Respiratory Rate 16 Blood Pressure 111/60 Blood Pressure Mean 77 Pulse Ox 100 Oxygen Delivery Method Room Air Positive well nourished and well developed General Appearance ED: well developed and NAD HEENT Reports moist mucous membranes normocephalic and atraumatic Eyes PERRL, EOMs intact bilaterally and conjunctivae normal General Eye ED: Yes normal appearance of both eyes Neck no lymphadenopathy and supple General: Negative for tenderness Chest Wall Chest: Negative for tenderness Resp normal respiratory effort and normal air movement Effort and Inspection: symmetric chest movement; Negative for respiratory distress Cardio regular rate, regular rhythm and no murmurs Peripheral Pulses: pulses 2+ throughout GI normal to inspection, nondistended, normoactive bowel sounds and non-tender Palpation: Negative for guarding or rebound tenderness present Back/Spine no CVA tenderness and no thoracic nor lumbar tenderness Extremity normal to inspection General Extremety ED: Negative for edema or tenderness General Extremity: Negative for edema Neuro oriented x3 and no sensory deficits noted Sensorium / Orientation: awake and alert Psych Psych Narrative: Admits to auditory and visual hallucinations. Patient cooperative, however tangentiality. Skin no rashes or lesions noted and no wounds MDM MDM MDM Narrative Medical decision making narrative: Patient vital signs stable, increasing psychosis with auditory and visual hallucinations. Patient reports she is taking her medications. Medical clearance labs are obtained. Patient lab results stable slightly subtherapeutic Depakote level. Clinically stable. Vitals stable. Patient is medically cleared. Will have evaluation by mental health counselor to assist with disposition. Discussed with mental health counselor, she spoke with patient to her arrival center in. Reporting she has voices are telling her to harm herself. She does agree patient will require admission. She was admitted to [place] under the service of Dr. Ordonez. [place] slip filled out. Lab Data Attestation: I reviewed the patient's lab results. Labs: Laboratory Results - last 24 hr 06/15/21 06/15/21 06/15/21 02:35 02:35 02:35 WBC 7.5 RBC 4.29 Hgb 13.2 Hct 40.2 MCV 93.7 MCH 30.8 MCHC 32.8 RDW Std Deviation 42.9 RDW Coeff of Elena 12.5 Plt Count 227 MPV 10.9 Immature Gran % (Auto) 0.100 Neut % (Auto) 31.6 L Lymph % (Auto) 58.3 H [place] % (Auto) 8.0 Eos % (Auto) 1.6 Baso % (Auto) 0.4 Absolute Neuts (auto) 2.4 Absolute Lymphs (auto) 4.36 Nucleated RBC % 0 Sodium 143 Potassium 4.0 Chloride 107 Carbon Dioxide 30.0 Anion Gap 6 BUN 14 Creatinine 0.70 Estim Creat Clear Calc 117.39 Est GFR (MDRD) Af Amer 130 Est GFR (MDRD) Non-Af 107 BUN/Creatinine Ratio 20.1 H Glucose 103 Calcium 9.4 Serum , Qual Urine Opiates Screen Urine Methadone Screen Ur Barbiturates Screen Valproic Acid 32 L Ur Phencyclidine Scrn Ur Amphetamines Screen U Methamphetamin-MDMA U Benzodiazepines Scrn Urine Cocaine Screen U Cannabinoids Screen Ur Drug Screen Comment Ethyl Alcohol 06/15/21 06/15/21 06/15/21 02:35 02:35 02:40 WBC RBC Hgb Hct MCV MCH MCHC RDW Std Deviation RDW Coeff of Elena Plt Count MPV Immature Gran % (Auto) Neut % (Auto) Lymph % (Auto) [place] % (Auto) Eos % (Auto) Baso % (Auto) Absolute Neuts (auto) Absolute Lymphs (auto) Nucleated RBC % Sodium Potassium Chloride Carbon Dioxide Anion Gap BUN Creatinine Estim Creat Clear Calc Est GFR (MDRD) Af Amer Est GFR (MDRD) Non-Af BUN/Creatinine Ratio Glucose Calcium Serum , Qual NEGATIVE Urine Opiates Screen NEGATIVE Urine Methadone Screen NEGATIVE Ur Barbiturates Screen NEGATIVE Valproic Acid Ur Phencyclidine Scrn NEGATIVE Ur Amphetamines Screen NEGATIVE U Methamphetamin-MDMA NEGATIVE U Benzodiazepines Scrn NEGATIVE Urine Cocaine Screen NEGATIVE U Cannabinoids Screen NEGATIVE Ur Drug Screen Comment Ethyl Alcohol < 3.0 Discharge Plan Triage Chief Complaint: Mental Health ED Provider: Dionisio Mercedes Dx/Rx/DC Orders Clinical Impression: Schizoaffective disorder, Acute psychosis, Auditory hallucination, Hallucination, visual, Suicidal ideations Prescriptions: No Action norgestimate-ethinyl estradiol 1 EACH tablet 1 ea PO DAILY RF: 0 divalproex 500 MG tablet,delayed release (DR/EC) 500 mg PO BID RF: 0 metformin 500 MG tablet extended release 24 hr 500 mg PO BID RF: 0 aripiprazole 10 mg tablet 10 mg PO DAILY RF: 0 propranolol 60 mg capsule,extended release 24 hr 60 mg PO DAILY Qty: 30 RF: 1 Primary Care Provider: Brando Diaz Referrals: Brando Diaz MD [Primary Care Provider] - Disposition Disposition: Psychiatric Hospital or Unit Discharge Location: [place]
[2021-06-15 02:49] LABS: Absolute Lymphocyte Count 4.36 X10^3/uL (0.83-4.51); Absolute Neutrophil Count 2.4 X10^3/uL (2.0-7.7); Basophil# 0.03 X10^3/uL; Basophil% 0.4 % (0-1); Eosinophil# 0.12 X10^3/uL; Eosinophils% 1.6 % (0-5); Hematocrit 40.2 % (37-47); Hemoglobin 13.2 g/dL (12.0-15.0); Lymphocyte # 4.36 X10^3/ul (0.83-4.51); Lymphocyte % 58.3 % (19-41); Mean Corp Hgb Conc 32.8 g/dL (32-36); Mean Corpuscular Hgb 30.8 pg (27.0-32.0); Mean Corpuscular Volume 93.7 fL (81-99); Mean Platelet Vol. 10.9 fl (6.2-12.0); NRBC Flagged by Analyzer 0 % (0-5); Neutrophil # 2.36 X10^3/uL (2.7-7.7); Neutrophil % 31.6 % (47-70); Platelet Count 227 K/mm3 (150-450); RBC Distribution Width CV 12.5 % (11.6-14.6); RBC Distribution Width SD 42.9 fl (35.1-43.9); Red Blood Count 4.29 M/mm3 (4.2-5.4); White Blood Count 7.5 K/mm3 (4.4-11.0)
[2021-06-15 03:00] LABS: Anion Gap 6 (5-15); BUN 14 mg/dL (7-18); BUN/Creat Ratio 20.1 RATIO (10-20); Calcium,Total 9.4 mg/dL (8.5-10.1); Chloride 107 mmol/L (98-107); EST Glomerular Filtration Rate 107 mL/min (>60); Est Glom Filt Rate - Afr Amer 130 mL/min (>60); Estimated Creatinine Clearance 117.39 ml/min; Glucose 103 mg/dL (74-106); Sodium Level 143 mmol/L (136-145)
[2021-06-15 03:02] LABS: Amphetamine Urine VISTA NEGATIVE (<1000 ng/mL); Barbiturate Urine VISTA NEGATIVE (< 200 ng/mL); Benzodiazepine Urine VISTA NEGATIVE (< 200 ng/mL); Cocaine Urine VISTA NEGATIVE (< 300 ng/mL); Ecstacy Urine VISTA NEGATIVE (< 500 ng/mL); Methadone Urine VISTA NEGATIVE (< 300 ng/mL); PCP Urine VISTA NEGATIVE (< 25 ng/mL); THC Urine VISTA NEGATIVE (< 50 ng/mL); Vista UDS pH Range 6
[2021-06-15 03:06] LABS: Internal QC Validated? YES +Cl - CLEAR BKGD; Pregnancy, Serum, hCG Quali. NEGATIVE Negative
[2021-06-15 04:11] LABS: Alcohol, Blood (Medical)-Serum < 3.0 mg/dL; Valproic Acid (Depakene) Level 32 ug/mL (50-100)
[2021-06-15 04:21] VITALS: RESP 18
[2021-06-15 05:08] VITALS: RESP 16
[2021-06-15 06:08] VITALS: BP 111/60; PULSE 62; RESP 16; O2SAT 100
--- NOTE | 2021-06-15 06:20 | NURSING ---
ACCEPTED TO [facility] BY DR. CARA BAKER UNIT [phone] REPORT
== END 2021-06-15 07:10 ==
PROVIDERS: Emergency Provider Emergency Medicine; PCP Family Medicine
DX: F25.9 Schizoaffective disorder, unspecified (principal); R45.851 Suicidal ideations; F41.9 Anxiety disorder, unspecified; F32.A Depression, unspecified; F84.0 Autistic disorder; Z79.84 Long term (current) use of oral hypoglycemic drugs; Z79.899 Other long term (current) drug therapy
CPT/HCPCS: 80048; 80164; 80307; 82077; 84703; 85025; 87426; 99285

== ENCOUNTER 2021-12-26 11:11 | Emergency (ER) | payer MEDICARE, SELFPAY ==
[2021-12-26 11:13] VITALS: BP 139/88; PULSE 61; RESP 20; TEMP 36.3; O2SAT 98; BMI 36.7
--- NOTE | 2021-12-26 11:26 | EX.ED.VIS.PS ---
HPI HPI - Psych History of Present Illness Chief Complaint: Mental Health Narrative Narrative: Patient presenting with anxiety depression and a recent panic attack. She felt like she was going to , she hyperventilated she had numbness and tingling in her fingers and around her lips, she had an aura where she saw different colors. She seems to be improved but she is quite scared. She has a history of schizoaffective disorder and history of psychosis at this time she denies any suicidal ideations. [facility] Medical History (Updated 12/26/21 @ 12:[address] Unruly Pate MD) Anxiety Autism Depression Dermatitis History of PCOS Schizoaffective disorder, unspecified condition Home Medications divalproex 500 mg tablet,delayed release 500 mg PO BID 08/11/20 [History Last Taken Unknown] metformin 500 mg tablet,extended release 24 hr 500 mg PO BID 08/11/20 [History Last Taken Unknown] calcium carbonate 600 mg-vitamin D3 5 mcg (200 unit) tablet (Calcium 600 + D(3)) 1 tab PO DAILY 12/26/21 [History Last Taken Unknown] cholecalciferol (vitamin D3) 125 mcg (5,000 unit) tablet (Vitamin D3) 125 mcg PO DAILY 12/26/21 [History Last Taken Unknown] lurasidone 40 mg tablet (Latuda) 1 tab PO DAILY 12/26/21 [History Last Taken Unknown] multivitamin with minerals (Hair,Skin and Nails) 2 tab PO DAILY 12/26/21 [History Last Taken Unknown] omega3-dha 200 mg-epa 300 mg-othr om3 100 mg-fish oil 1,000 mg capsule ([place]) 1 cap PO DAILY 12/26/21 [History Last Taken Unknown] propranolol 60 mg capsule,24 hr,extended release 60 mg PO BID 12/26/21 [History Last Taken Unknown] topiramate 25 mg tablet 1 tab PO BID 12/26/21 [History Last Taken Unknown] venlafaxine 75 mg capsule,extended release 24 hr 1 cap PO DAILY 12/26/21 [History Last Taken Unknown] Allergy/AdvReac Type Severity Reaction Status Date / Time cat dander Allergy Unknown Unknown Verified 12/26/21 11:12 milk AdvReac Other Verified 12/26/21 11:12 Family History Grandmother Diabetes PGM and MGM Hypertension Aunt Cancer thyroid Grandfather Hypertension CVA (cerebral vascular accident) Social History Smoking Status: Never smoker alcohol intake: current alcohol intake frequency: holidays/special occasions only what type of physical activity do you participate in: running and aerobics frequency: 3-4 times per week ROS ROS ED ROS Narrative Past medical history: Reviewed Medications: Reviewed Social history: Noncontributory Review of systems: All systems negative except as indicated General: No fever Eyes: No visual changes ENT: No upper airway congestion, normal voice Neck: No neck pain Cardiovascular: Chest pain resolved Respiratory: Hyperventilation, resolved. Gastrointestinal: No abdominal pain, nausea vomiting or diarrhea Genitourinary: No dysuria Musculoskeletal: Denies myalgias no difficulty with ambulation Skin: No rash Neurological: No memory loss, confusion or any focal weakness Psych: As in HPI Hematologic: No easy bleeding or easy bruising EXAM Physical Exam Narrative Exam Narrative: Physical exam General: Well nourished, Well developed, she appears quite anxious Head: Normocephalic, Atraumatic Eyes: Conjunctiva not pale ENT: Moist mucous membranes Neck: Supple, Nontender, No lymphadenopathy Cardiovascular: Regular rate, Regular rhythm Respiratory: No distress, CTA bilaterally Abdomen: Soft, Nontender, Nondistended Back: Nontender, Normal Inspection. Negative for: CVA tenderness Extremities: Nontender, No edema Skin: Normal color, No rash Neurological: Alert, Normal Strength, Normal Sensation Psychological: Anxious, slightly pressured speech she is tearful. She denies suicidal ideations. She is reasonable she has no paranoias. She is denying hallucinations. Const Vital Signs: 12/26/21 11:13 Temperature 97.3 F L Temperature Source Temporal Pulse Rate 61 Respiratory Rate 20 H Blood Pressure 139/88 H Blood Pressure Mean 105 Pulse Ox 98 Oxygen Delivery Method Room Air MDM MDM MDM Narrative Medical decision making narrative: Patient is given Ativan I reevaluated her, she is now more psychotic, I discussed with mental health and she will need placement for her acute psychosis. Discharge Plan Triage Chief Complaint: Mental Health ED Provider: Unruly Pate Dx/Rx/DC Orders Clinical Impression: Acute psychosis, Anxiety Prescriptions: No Action divalproex 500 MG tablet,delayed release (DR/EC) 500 mg PO BID metformin 500 MG tablet extended release 24 hr 500 mg PO BID venlafaxine 75 mg capsule,extended release 24hr 1 cap PO DAILY topiramate 25 mg tablet 1 tab PO BID calcium carbonate-vitamin D3 [Calcium 600 + D(3)] 600 mg-5 mcg (200 unit) Tablet 1 tab PO DAILY Hair,Skin and Nails Tablet 2 tab PO DAILY cholecalciferol (vitamin D3) [Vitamin D3] 125 mcg (5,000 unit) Tablet 125 mcg PO DAILY Latuda 40 mg tablet 1 tab PO DAILY [place] 200 mg-300 mg- 100 mg-1,000 mg Capsule 1 cap PO DAILY propranolol 60 mg capsule,extended release 24 hr 60 mg PO BID Primary Care Provider: Brando Diaz Referrals: Brando Diaz MD [Primary Care Provider] - Disposition Disposition: Psychiatric Hospital or Unit
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
[2021-12-26] MEDS: LORazepam 2 MG/ML Syringe 1 MG IM (12:16)
[2021-12-26 12:33] LABS: Absolute Lymphocyte Count 3.53 X10^3/uL (0.83-4.51); Absolute Neutrophil Count 3.5 X10^3/uL (2.0-7.7); Basophil# 0.07 X10^3/uL; Basophil% 0.9 % (0-1); Eosinophils% 1.2 % (0-5); Hematocrit 41.1 % (37-47); Lymphocyte # 3.53 X10^3/ul (0.83-4.51); Lymphocyte % 44.1 % (19-41); Mean Corp Hgb Conc 34.1 g/dL (32-36); Mean Corpuscular Hgb 31.5 pg (27.0-32.0); Mean Corpuscular Volume 92.4 fL (81-99); Mean Platelet Vol. 11.4 fl (6.2-12.0); Monocyte# 0.76 X10^3/uL; Monocyte% 9.5 % (0-10); NRBC Flagged by Analyzer 0 % (0-5); Neutrophil # 3.54 X10^3/uL (2.7-7.7); Neutrophil % 44.2 % (47-70); Platelet Count 213 K/mm3 (150-450); RBC Distribution Width SD 40.8 fl (35.1-43.9); Red Blood Count 4.45 M/mm3 (4.2-5.4)
[2021-12-26 12:44] LABS: Anion Gap 7 (5-15); BUN 9 mg/dL (7-18); BUN/Creat Ratio 12.2 RATIO (10-20); Calcium,Total 9.2 mg/dL (8.5-10.1); Chloride 108 mmol/L (98-107); Creatinine, Serum 0.74 mg/dL (0.55-1.02); EST Glomerular Filtration Rate 100 mL/min (>60); Est Glom Filt Rate - Afr Amer 121 mL/min (>60); Glucose 100 mg/dL (74-106); Potassium 3.8 mmol/L (3.5-5.1); Sodium Level 140 mmol/L (136-145)
[2021-12-26 12:46] LABS: Internal QC Validated? YES +Cl - CLEAR BKGD; Pregnancy, Serum, hCG Quali. NEGATIVE Negative
[2021-12-26 12:53] LABS: Amphetamine Urine VISTA NEGATIVE (<1000 ng/mL); Barbiturate Urine VISTA NEGATIVE (< 200 ng/mL); Benzodiazepine Urine VISTA NEGATIVE (< 200 ng/mL); Cocaine Urine VISTA NEGATIVE (< 300 ng/mL); Ecstacy Urine VISTA NEGATIVE (< 500 ng/mL); Methadone Urine VISTA NEGATIVE (< 300 ng/mL); PCP Urine VISTA NEGATIVE (< 25 ng/mL); THC Urine VISTA NEGATIVE (< 50 ng/mL); Vista UDS pH Range 7
[2021-12-26 12:56] LABS: Alcohol, Blood (Medical)-Serum < 3.0 mg/dL
--- NOTE | 2021-12-26 13:07 | CM.ED ---
NICOL called Rebeca at [facility]. They have open beds. SW was advised that patient wanted to speak to certified social workers in health care. Patient was in the room with her boyfriend. Patient gave verbal consent to speak in front of her boyfriend, Pb. Patient said that she [facility]. SW noted there are no identifiable [facility]. Patient got very loud and said YOUR telling me there are no [facility]. Patient then said her boyfriend sister said that [facility] was supportive of the [facility]onica. Patient said that she wanted to go to [facility] or [facility]. NICOL advised that this specifications writer would check on bed availability. SW faxed referrals to [facility] and [facility]. SW spoke to [facility] and they were unable to indicate if they would have a bed. [facility]
--- NOTE | 2021-12-26 14:16 | NURSING ---
CALLED PHYSICIANS AT 1400 ETA 30 MIN
--- NOTE | 2021-12-26 14:38 | CM.ED ---
SW Note NICOL received call from Rodney from [facility]. Patient was accepted to [address] [place] [address] . MD is Beata. RN to RN is [phone]. NICOL updated RN, rollway worker and MD. NICOL called Neema at [facility] and advised that when patient was given ativan due to the MD feeling that patient was having a panic attack and inquired if patient needed to wait 4 hour. Rodney asked how patient was doing and NICOL advised that patient was doing well and the ativan was related to suspected panic attack. Rodney said that was fine to send her. area secretary arranged transport. RN called report. NICOL updated Crisis that patient went to [facility]. NICOL updated patient that she was accepted at [facility]. Plan: [facility]
--- NOTE | 2021-12-26 15:13 | CM.ED ---
Late Entry: NICOL had faxed pink slip to [facility]
== END 2021-12-26 14:45 ==
PROVIDERS: Emergency Provider Emergency Medicine; PCP Family Medicine; Visit Provider Emergency Medicine
DX: F23 Brief psychotic disorder (principal); F41.9 Anxiety disorder, unspecified; Z79.84 Long term (current) use of oral hypoglycemic drugs; Z79.899 Other long term (current) drug therapy
CPT/HCPCS: 36415; 80048; 80307; 82077; 84703; 85025; 87811; 96372; 99283

== ENCOUNTER 2022-07-07 01:18 | Emergency (ER) | payer MEDICARE, MEDICAID, SELFPAY ==
[2022-07-07] VITALS (8 sets, daily range): BP systolic 121–154; BP diastolic 78–90; PULSE 57–88; RESP 14–16; TEMP 36.5–37.2; O2SAT 98–100; BMI 37.8
--- NOTE | 2022-07-07 01:53 | EX.ED.VIS.PS ---
HPI HPI - Psych History of Present Illness Chief Complaint: Suicidal Detail of Chief Complaint: Auditory hallucinations. Plan to cut herself. Informant: patient Onset/Context/Timing Onset: Month(s) Timing: Intermittent Current Severity: Mild Maximum Severity: Mild Associated Symptoms Associated Symptoms - Psych: Positive for Depressed, Suicidal Thoughts and Auditory Hallucinations; Negative for Flight of Ideas, Pressured Speech, Agitated, Angry, Hostile, Threatening, Confusion, Paranoia or Visual Hallucinations Specific plan (suicidal thought): Cut herself Narrative Narrative: 27-year-old female history of schizoaffective disorder and bipolar. States that her uncle in June and that she does not handle grief and loss well. She has been hearing voices that are telling her to harm her self. She has a plan to cut herself but has not actually attempted. She said this has been going on for 1 to 2 months. Her last psychiatric admission was January 2022. She denies any suicide attempt this time. Prior similar symptoms: Yes Recent Illness/Hospitalization: No [facility] Medical History Anxiety Autism Depression Dermatitis History of PCOS Schizoaffective disorder, unspecified condition Home Medications divalproex 500 mg tablet,delayed release 500 mg PO BID 08/11/20 [History Last Taken Unknown] metformin 500 mg tablet,extended release 24 hr 500 mg PO BID 08/11/20 [History Last Taken Unknown] calcium carbonate 600 mg-vitamin D3 5 mcg (200 unit) tablet (Calcium 600 + D(3)) 1 tab PO DAILY 12/26/21 [History Last Taken Unknown] cholecalciferol (vitamin D3) 125 mcg (5,000 unit) tablet (Vitamin D3) 125 mcg PO DAILY 12/26/21 [History Last Taken Unknown] multivitamin with minerals (Hair,Skin and Nails tablet) 2 tab PO DAILY 12/26/21 [History Last Taken Unknown] omega3-dha 200 mg-epa 300 mg-othr om3 100 mg-fish oil 1,000 mg capsule ([place]) 1 cap PO DAILY 12/26/21 [History Last Taken Unknown] propranolol 60 mg capsule,24 hr,extended release 60 mg PO BID 12/26/21 [History Last Taken Unknown] topiramate 25 mg tablet 1 tab PO BID 12/26/21 [History Last Taken Unknown] venlafaxine 75 mg capsule,extended release 24 hr 1 cap PO DAILY 12/26/21 [History Last Taken Unknown] buspirone 10 mg tablet 10 mg PO BID 07/07/22 [History Last Taken Unknown] hydroxyzine pamoate 50 mg capsule 50 mg PO QHS PRN PRN Sleep 07/07/22 [History Last Taken Unknown] Allergy/AdvReac Type Severity Reaction Status Date / Time cat dander Allergy Unknown Unknown Verified 07/07/22 01:20 milk AdvReac Other Verified 07/07/22 01:20 Family History Grandmother Diabetes PGM and MGM Hypertension Aunt Cancer thyroid Grandfather Hypertension CVA (cerebral vascular accident) Social History Smoking Status: Never smoker alcohol intake: current alcohol intake frequency: holidays/special occasions only what type of physical activity do you participate in: running and aerobics frequency: 3-4 times per week ROS ROS ED ROS Narrative Denies recent illness. Review of Systems ROS Unobtainable: Denies due to encephalopathy Constitutional Constitutional ED: Denies chills Eyes Eyes: Denies blurry vision ENT ENT ED: Denies ear pain Cardiovascular Cardiovascular: Denies chest pain Respiratory/Chest Respiratory/Chest: Denies cough Gastrointestinal Gastrointestinal: Denies abdominal pain Genitourinary Genitourinary ED: Denies dysuria Musculoskeletal Musculoskeletal: Denies arthralgias Integumentary Denies abscess Neurologic Neurologic: Denies headache(s) Psychiatric Psychiatric: Reports depression, suicidal ideation and suicidal thoughts; Denies anxiety Endocrine Endocrinology: Denies polydipsia Hematologic/Lymphatic Hematologic/Lymphatic: Denies easy bleeding Allergic/Immunologic Allergic/Immunologic ED: Denies mouth swelling or tongue swelling EXAM Physical Exam Narrative Exam Narrative: 7-year-old female no acute distress. Vital signs are stable afebrile. H EENT exam unremarkable atraumatic. Moist mucous membranes. Neck nontender no lymphadenopathy. No signs of trauma. Lungs clear to auscultation. Heart regular rhythm rate about 60 no murmur. Abdomen soft nontender normal bowel sounds no peritoneal signs. Moving all 4 extremities. No signs of trauma. No self inflicted lacerations or cut hilliard. Back nontender. Neurologically she is awake and alert with no focal motor deficits. No smell of alcohol. No signs of any toxidrome. She is answering questions and following commands. She is not violent. Const Vital Signs: 07/07/22 01:20 07/07/22 02:19 07/07/22 03:00 Temperature 97.7 F L Temperature Source Temporal Pulse Rate 60 Respiratory Rate 16 15 15 Blood Pressure 126/90 H Blood Pressure Mean 102 Pulse Ox 98 Oxygen Delivery Method Room Air 07/07/22 04:00 07/07/22 05:00 07/07/22 06:50 Temperature Temperature Source Pulse Rate 57 L Respiratory Rate 16 14 16 Blood Pressure 154/88 H Blood Pressure Mean 110 Pulse Ox 99 Oxygen Delivery Method Room Air Positive well nourished, well developed and obese; Negative for cachectic, contractures or unkempt General Appearance ED: well developed and NAD; Negative for unkempt, cachectic, contractures or pallor Nutritional Appearance: obese; Negative for cachectic HEENT Reports moist mucous membranes normocephalic and atraumatic; Negative for trauma or tenderness Eyes PERRL and EOMs intact bilaterally General Eye ED: Negative for pale conjunctiva or scleral icterus Neck no lymphadenopathy, supple and no JVD General: Negative for tenderness Resp normal respiratory effort and clear to auscultation bilaterally Effort and Inspection: Negative for retractions Auscultation: Negative for rales, rhonchi or wheezes Cardio S1 normal heart sound, S2 normal heart sound and no murmurs Palpation: Negative for other Rate: Negative for regular rate, bradycardia or tachycardic Rhythm: regular rhythm GI non-tender, non-distended and no masses Inspection: Negative for abdominal distention Auscultation: normoactive bowel sounds Palpation: soft; Negative for tender or guarding Back/Spine no CVA tenderness General Back: Negative for CVA tenderness Cervical Spine: Negative for cervical spine tenderness Thoracic Spine / Upper Back: Negative for thoracic spinal tenderness Lumbar Spine / Lower Back: Negative for lumbar spinal tenderness Coccyx: Negative for other Extremity normal to inspection General Extremety ED: Negative for edema or tenderness General Extremity: Negative for edema Neuro oriented x3, CN's II-XII intact bilaterally and no sensory deficits noted Sensorium / Orientation: alert, oriented to person, oriented to place and oriented to time; Negative for orientation impaired, confused, lethargic or stuporous Motor Exam: strength 5/5 throughout Psych mental status grossly normal, thought process normal, cooperative, affect normal, speech normal and activity/motor behavior normal; Negative for denies hallucinations or denies suicidal ideation Appearance: grossly normal, appropriate and well kempt; Negative for unkempt, disheveled, bizarre or intubated Attitude: calm, engaged, No paranoid, No withdrawn, No bizarre, No uncooperative, No evasive, No guarded, No belligerent, No agitated, No aggressive and No hostile Activity / Motor Behavior: appropriate eye contact; Negative for psychomotor agitation, psychomotor slowing, fidgetting or hyperactive Speech: normal speech, No incoherent, No excessive, No minimal, No slow, No rapid, No soft, No loud, No delayed, No echolalia, No mute, No pressured and No slurred Mood & Affect: depressed Thought Process: normal thought process Thought Content: normal thought content, suicidality and hallucination(s) Memory / Cognition: memory grossly intact Insight: insight good Judgement: judgement good Skin General Skin Exam: Negative for jaundice or pallor Lesions: no lesions Rashes: no rashes Trauma: Negative for abrasion Wounds: Negative for amputation MDM MDM MDM Narrative Medical decision making narrative: [id number] female history of bipolar and schizoaffective disorder. Recently had her uncle . States she is not handling that well. Is having auditory hallucinations to harm her self. Is having thoughts of cutting herself but has had no attempt or any other suicide attempt recently. Last mental health hospitalization was about 6 months ago. She will undergo ED mental health labs. Crisis evaluation. She is medically cleared. Exam is benign. There is no signs of trauma or injury. Repeat exam patient doing well at 3:35 AM. Crisis evaluation. Labs are unremarkable. She is medically cleared. Crisis spoke to the patient around 3:40 AM. They agree with the patient that she needs admission to a mental health facility. They are working on a transfer to a psychiatric facility. Patient is currently resting comfortably and doing well at 4 AM. Lab Data Attestation: I reviewed the patient's lab results. Lab results narrative: CBC shows normal white count 8.6. H&H of 14.8 and 43. Platelets 205. Electrolytes unremarkable. Gap of 8. Normal BUN and creatinine. Glucose 97. Urine tox screen negative. negative. Alcohol negative. COVID test negative. Labs: Laboratory Results - last 24 hr 07/07/22 07/07/22 07/07/22 01:35 01:50 01:50 WBC 8.6 RBC 4.58 Hgb 14.8 Hct 43.0 MCV 93.9 MCH 32.3 H MCHC 34.4 RDW Std Deviation 40.4 RDW Coeff of Elena 11.7 Plt Count 205 MPV 11.2 Immature Gran % (Auto) 0.200 Neut % (Auto) 38.9 L Lymph % (Auto) 50.8 H [place] % (Auto) 8.1 Eos % (Auto) 1.2 Baso % (Auto) 0.8 Absolute Neuts (auto) 3.3 Absolute Lymphs (auto) 4.34 Nucleated RBC % 0 Sodium 141 Potassium 3.9 Chloride 110 H Carbon Dioxide 23.0 Anion Gap 8 BUN 14 Creatinine 0.81 Estim Creat Clear Calc 93.05 Est GFR (MDRD) Af Amer 108 Est GFR (MDRD) Non-Af 89 BUN/Creatinine Ratio 17.3 Glucose 97 Calcium 8.7 Serum , Qual Urine Opiates Screen NEGATIVE Urine Methadone Screen NEGATIVE Ur Barbiturates Screen NEGATIVE Ur Phencyclidine Scrn NEGATIVE Ur Amphetamines Screen NEGATIVE MDMA (Ecstasy) Screen NEGATIVE U Benzodiazepines Scrn NEGATIVE Urine Cocaine Screen NEGATIVE U Cannabinoids Screen NEGATIVE Ur Drug Screen Comment Ethyl Alcohol 07/07/22 07/07/22 01:50 01:50 WBC RBC Hgb Hct MCV MCH MCHC RDW Std Deviation RDW Coeff of Elena Plt Count MPV Immature Gran % (Auto) Neut % (Auto) Lymph % (Auto) [place] % (Auto) Eos % (Auto) Baso % (Auto) Absolute Neuts (auto) Absolute Lymphs (auto) Nucleated RBC % Sodium Potassium Chloride Carbon Dioxide Anion Gap BUN Creatinine Estim Creat Clear Calc Est GFR (MDRD) Af Amer Est GFR (MDRD) Non-Af BUN/Creatinine Ratio Glucose Calcium Serum , Qual NEGATIVE Urine Opiates Screen Urine Methadone Screen Ur Barbiturates Screen Ur Phencyclidine Scrn Ur Amphetamines Screen MDMA (Ecstasy) Screen U Benzodiazepines Scrn Urine Cocaine Screen U Cannabinoids Screen Ur Drug Screen Comment Ethyl Alcohol < 3.0 Discharge Plan Triage Chief Complaint: Suicidal ED Provider: Mc Tian Dx/Rx/DC Orders Clinical Impression: Depression, Schizoaffective disorder, Auditory hallucinations, Suicidal thoughts Prescriptions: No Action divalproex 500 MG tablet,delayed release (DR/EC) 500 mg PO BID metformin 500 MG tablet extended release 24 hr 500 mg PO BID venlafaxine 75 mg capsule,extended release 24hr 1 cap PO DAILY topiramate 25 mg tablet 1 tab PO BID calcium carbonate-vitamin D3 [Calcium 600 + D(3)] 600 mg-5 mcg (200 unit) Tablet 1 tab PO DAILY Hair,Skin and Nails Tablet 2 tab PO DAILY cholecalciferol (vitamin D3) [Vitamin D3] 125 mcg (5,000 unit) Tablet 125 mcg PO DAILY [place] 200 mg-300 mg- 100 mg-1,000 mg Capsule 1 cap PO DAILY propranolol 60 mg capsule,extended release 24 hr 60 mg PO BID hydroxyzine pamoate 50 mg capsule 50 mg PO QHS PRN PRN (Reason: Sleep) buspirone 10 mg tablet 10 mg PO BID Primary Care Provider: Brando Diaz Referrals: Brando Diaz MD [Primary Care Provider] - Disposition Disposition: Psychiatric Hospital or Unit
[2022-07-07 02:10] LABS: Absolute Lymphocyte Count 4.34 X10^3/uL (0.83-4.51); Absolute Neutrophil Count 3.3 X10^3/uL (2.0-7.7); Basophil# 0.07 X10^3/uL; Basophil% 0.8 % (0-1); Eosinophils% 1.2 % (0-5); Hemoglobin 14.8 g/dL (12.0-15.0); Lymphocyte # 4.34 X10^3/ul (0.83-4.51); Lymphocyte % 50.8 % (19-41); Mean Corp Hgb Conc 34.4 g/dL (32-36); Mean Corpuscular Hgb 32.3 pg (27.0-32.0); Mean Corpuscular Volume 93.9 fL (81-99); Mean Platelet Vol. 11.2 fl (6.2-12.0); Monocyte# 0.69 X10^3/uL; Monocyte% 8.1 % (0-10); NRBC Flagged by Analyzer 0 % (0-5); Neutrophil # 3.33 X10^3/uL (2.7-7.7); Neutrophil % 38.9 % (47-70); Platelet Count 205 K/mm3 (150-450); RBC Distribution Width CV 11.7 % (11.6-14.6); RBC Distribution Width SD 40.4 fl (35.1-43.9); Red Blood Count 4.58 M/mm3 (4.2-5.4); White Blood Count 8.6 K/mm3 (4.4-11.0)
[2022-07-07 02:25] LABS: Anion Gap 8 (5-15); BUN 14 mg/dL (7-18); BUN/Creat Ratio 17.3 RATIO (10-20); Calcium,Total 8.7 mg/dL (8.5-10.1); Chloride 110 mmol/L (98-107); Creatinine, Serum 0.81 mg/dL (0.55-1.02); EST Glomerular Filtration Rate 89 mL/min (>60); Est Glom Filt Rate - Afr Amer 108 mL/min (>60); Estimated Creatinine Clearance 93.05 ml/min; Glucose 97 mg/dL (74-106); Potassium 3.9 mmol/L (3.5-5.1); Sodium Level 141 mmol/L (136-145)
[2022-07-07 02:27] LABS: Amphetamine Urine VISTA NEGATIVE (<1000 ng/mL); Barbiturate Urine VISTA NEGATIVE (< 200 ng/mL); Benzodiazepine Urine VISTA NEGATIVE (< 200 ng/mL); Cocaine Urine VISTA NEGATIVE (< 300 ng/mL); Ecstacy Urine VISTA NEGATIVE (< 500 ng/mL); Methadone Urine VISTA NEGATIVE (< 300 ng/mL); PCP Urine VISTA NEGATIVE (< 25 ng/mL); THC Urine VISTA NEGATIVE (< 50 ng/mL); Vista UDS pH Range 7
[2022-07-07 02:27] LABS: Internal QC Validated? YES +Cl - CLEAR BKGD; Pregnancy, Serum, hCG Quali. NEGATIVE Negative
[2022-07-07 02:28] LABS: Alcohol, Blood (Medical)-Serum < 3.0 mg/dL
--- NOTE | 2022-07-07 03:56 | NURSING ---
CRISIS CALLED AND SPOKE WITH PATIENT. PATIENT WILL BE PLACED INTO A PSYCH FACILITY. REFERRALS BEING MADE PER SHIKHA.
--- NOTE | 2022-07-07 04:54 | NURSING ---
[facility] REFERR[facility]
[2022-07-07] MEDS: Acetaminophen 325 MG Tablet 650 MG PO (07:28)
--- NOTE | 2022-07-07 07:34 | ED.RN ---
pt complains of generalized pain. dr. chao aware. tylenol order given.
--- NOTE | 2022-07-07 07:53 | ED.RN ---
THIS RN RECEIVES A PHONE CALL FROM LEONEL CARTY REQUESTING DOCUMENTATION OF MEDICAL CLEARANCE AND VS.
--- NOTE | 2022-07-07 08:45 | NURSING ---
ACCEPTED AT [facility]
--- NOTE | 2022-07-07 09:33 | ED.RN ---
x3 attempts for report called. intake said nurse from floor would call back
--- NOTE | 2022-07-07 10:42 | ED.RN ---
DERRICK CALLS FOR REPORT, REPORT GIVEN
== END 2022-07-07 09:30 ==
PROVIDERS: Emergency Provider Emergency Medicine; PCP Family Medicine; Visit Provider Emergency Medicine
DX: R45.851 Suicidal ideations (principal); F25.9 Schizoaffective disorder, unspecified; F32.A Depression, unspecified; E66.9 Obesity, unspecified
CPT/HCPCS: 80048; 80307; 82077; 84703; 85025; 87811; 99285

== ENCOUNTER 2022-08-09 02:49 | Emergency (ER) | payer MEDICARE, MEDICAID, SELFPAY ==
[2022-08-09 02:51] VITALS: BP 129/76; PULSE 81; RESP 18; TEMP 36.5; O2SAT 98; BMI 38.3
[2022-08-09 03:47] LABS: Mucous, Urine 0 SEEN /hpf (<or=2+); Red Blood Cells-Urine 0 SEEN /hpf (0-5)
[2022-08-09 03:50] VITALS: RESP 18
[2022-08-09 03:51] LABS: Absolute Lymphocyte Count 3.25 X10^3/uL (0.83-4.51); Absolute Neutrophil Count 2.7 X10^3/uL (2.0-7.7); Basophil# 0.06 X10^3/uL; Basophil% 0.9 % (0-1); Eosinophil# 0.19 X10^3/uL; Eosinophils% 2.8 % (0-5); Hematocrit 44.8 % (37-47); Hemoglobin 14.6 g/dL (12.0-15.0); Lymphocyte # 3.25 X10^3/ul (0.83-4.51); Mean Corp Hgb Conc 32.6 g/dL (32-36); Mean Corpuscular Hgb 31.2 pg (27.0-32.0); Mean Corpuscular Volume 95.7 fL (81-99); Mean Platelet Vol. 11.3 fl (6.2-12.0); Monocyte# 0.55 X10^3/uL; Monocyte% 8.1 % (0-10); NRBC Flagged by Analyzer 0 % (0-5); Neutrophil % 39.9 % (47-70); Platelet Count 191 K/mm3 (150-450); RBC Distribution Width CV 12.2 % (11.6-14.6); RBC Distribution Width SD 42.4 fl (35.1-43.9); Red Blood Count 4.68 M/mm3 (4.2-5.4); White Blood Count 6.8 K/mm3 (4.4-11.0)
[2022-08-09 03:57] LABS: Color, Urine Yellow (Yellow); Glucose, Dipstick Normal (Normal); Ketone-Dipstick Negative (Negative); Leukocyte Esterase-Dipstick 100 /ul (Negative); Nitrite-Dipstick Negative (Negative); Occult Blood-Urine Negative /ul (Negative); Protein-Dipstick 15 mg/dl (Negative); Specific Gravity, Urine 1.015 (1.002-1.030); Urine Bilirubin Dipstick Negative (Negative); Urine Clarity Sl. Cloudy (Clear); Urine Urobilinogen Normal (Normal)
[2022-08-09 04:01] LABS: Internal QC Validated? YES +Cl - CLEAR BKGD; Pregnancy, Urine Negative Negative
[2022-08-09 04:05] LABS: Bacteria 3+ /hpf (None Seen); Hyaline Cast 0-5 SEEN /lpf (0-5); Squamous Epithelial Cells - UA 10-25 SEEN /hpf (5-10); White Blood Cells 10-25 SEEN /hpf (0-5)
[2022-08-09 04:06] LABS: Amorphous Sediment 1+
[2022-08-09 04:10] LABS: Anion Gap 9 (5-15); BUN 12 mg/dL (7-18); BUN/Creat Ratio 15.8 RATIO (10-20); Chloride 112 mmol/L (98-107); Creatinine, Serum 0.76 mg/dL (0.55-1.02); EST Glomerular Filtration Rate 96 mL/min (>60); Est Glom Filt Rate - Afr Amer 116 mL/min (>60); Estimated Creatinine Clearance 99.17 ml/min; Glucose 98 mg/dL (74-106); Sodium Level 143 mmol/L (136-145)
[2022-08-09 04:12] LABS: Amphetamine Urine VISTA NEGATIVE (<1000 ng/mL); Barbiturate Urine VISTA NEGATIVE (< 200 ng/mL); Benzodiazepine Urine VISTA NEGATIVE (< 200 ng/mL); Cocaine Urine VISTA NEGATIVE (< 300 ng/mL); Ecstacy Urine VISTA NEGATIVE (< 500 ng/mL); Methadone Urine VISTA NEGATIVE (< 300 ng/mL); PCP Urine VISTA NEGATIVE (< 25 ng/mL); THC Urine VISTA NEGATIVE (< 50 ng/mL); Vista UDS pH Range 6
[2022-08-09 04:50] VITALS: RESP 19
[2022-08-09 04:56] LABS: Alcohol, Blood (Medical)-Serum < 3.0 mg/dL; Valproic Acid (Depakene) Level 27 ug/mL (50-100)
[2022-08-09 05:00] VITALS: RESP 17
--- NOTE | 2022-08-09 05:18 | NURSING ---
CALLED CRISIS AT [phone]
--- NOTE | 2022-08-09 06:18 | EDS_ITS ---
HPI History of Present Illness Chief Complaint: Mental Health Narrative Narrative: Patient is a 27-year-old female with past medical history of schizoaffective disorder bipolar disorder and autism. She states she was in her apartment this evening when she began to feel nervous and anxious and this stimulated a increase in her bipolar syed. She states that when this occurred she was having some visual hallucinations as she was seeing shadows. She also reports that there were increased voices during this time. She states she was recently at a psychiatric facility where they are changing her medications and she is unsure if these symptoms are secondary to the medication change or another issue. She denies any homicidal or suicidal ideation but with her increased anxiety presents for evaluation. [facility] Medical History Anxiety Autism Depression Dermatitis History of PCOS Schizoaffective disorder, unspecified condition Home Medications divalproex 500 mg tablet,delayed release 500 mg PO BID 08/11/20 [History Last Taken Unknown] metformin 500 mg tablet,extended release 24 hr 500 mg PO BID 08/11/20 [History Last Taken Unknown] multivitamin with minerals (Hair,Skin and Nails tablet) 2 tab PO DAILY 12/26/21 [History Last Taken Unknown] topiramate 25 mg tablet 1 tab PO BID 12/26/21 [History Last Taken Unknown] Allergy/AdvReac Type Severity Reaction Status Date / Time cat dander Allergy Unknown Unknown Verified 08/09/22 02:54 milk AdvReac Other Verified 08/09/22 02:54 Family History Grandmother Diabetes PGM and MGM Hypertension Aunt Cancer thyroid Grandfather Hypertension CVA (cerebral vascular accident) Social History Smoking Status: Never smoker alcohol intake: current alcohol intake frequency: holidays/special occasions only what type of physical activity do you participate in: running and aerobics frequency: 3-4 times per week ROS ROS ED Constitutional Constitutional ED: Denies chills or fever(s) ENT ENT ED: Denies sore throat Cardiovascular Cardiovascular: Denies chest pain Respiratory/Chest Respiratory/Chest: Denies cough or dyspnea Gastrointestinal Gastrointestinal: Denies abdominal pain, diarrhea, nausea or vomiting Genitourinary Genitourinary ED: Denies dysuria Musculoskeletal Musculoskeletal: Denies myalgias Integumentary Denies rash Neurologic Neurologic: Denies headache(s) Psychiatric Psychiatric: Reports anxiety; Denies suicidal ideation or suicidal thoughts Hematologic/Lymphatic Hematologic/Lymphatic: Denies easy bleeding or easy bruising EXAM Physical Exam Const Vital Signs: 08/09/22 02:51 08/09/22 03:50 08/09/22 04:50 Temperature 97.7 F L Temperature Source Temporal Pulse Rate 81 Respiratory Rate 18 18 19 H Blood Pressure 129/76 H Blood Pressure Mean 93 Pulse Ox 98 Oxygen Delivery Method Room Air 08/09/22 05:00 Temperature Temperature Source Pulse Rate Respiratory Rate 17 Blood Pressure Blood Pressure Mean Pulse Ox Oxygen Delivery Method Room Air Positive well nourished and well developed General Appearance ED: well developed HEENT Reports moist mucous membranes Eyes PERRL and EOMs intact bilaterally Neck supple Resp normal respiratory effort and clear to auscultation bilaterally Cardio regular rate and regular rhythm GI normal to inspection, nondistended, normoactive bowel sounds, non-tender, non- distended and no masses Auscultation: normoactive bowel sounds Palpation: soft Extremity normal to inspection Neuro oriented x3 and CN's II-XII intact bilaterally Sensorium / Orientation: alert Psych Psych Narrative: Patient has a nervous/anxious affect and does admit to intrusive thoughts and hallucinations but denies any homicidal or suicidal ideation. Skin no rashes or lesions noted MDM MDM MDM Narrative Medical decision making narrative: Patient presented in no acute distress but reported anxiety along with worsening of her bipolar symptoms and secondary to this a psychiatric screening exam was performed. The exam revealed no clinically significant finding. Her Depakote level is slightly low at 27 but she is on this for mood stabilization and not seizure prophylaxis so this value is not concerning. Based on the patient's reported increased anxiety and worsening bipolar symptoms crisis center was contacted. They evaluated the patient and feel she is at her baseline status. As she is not having any homicidal or suicidal ideations they do not feel would be appropriate to place her back in a psychiatric facility. They recommend patient stay on her medication that was adjusted at her recent psychiatric stay but otherwise feels that she can follow-up on an outpatient basis. This plan of care was discussed with the patient she is agreeable to it Lab Data Attestation: I reviewed the patient's lab results. Labs: Laboratory Results - last 24 hr 08/09/22 08/09/22 08/09/22 03:40 03:40 03:40 WBC 6.8 RBC 4.68 Hgb 14.6 Hct 44.8 MCV 95.7 MCH 31.2 MCHC 32.6 RDW Std Deviation 42.4 RDW Coeff of Elena 12.2 Plt Count 191 MPV 11.3 Immature Gran % (Auto) 0.300 Neut % (Auto) 39.9 L Lymph % (Auto) 48.0 H [place] % (Auto) 8.1 Eos % (Auto) 2.8 Baso % (Auto) 0.9 Absolute Neuts (auto) 2.7 Absolute Lymphs (auto) 3.25 Nucleated RBC % 0 Sodium 143 Potassium 4.0 Chloride 112 H Carbon Dioxide 22.0 Anion Gap 9 BUN 12 Creatinine 0.76 Estim Creat Clear Calc 99.17 Est GFR (MDRD) Af Amer 116 Est GFR (MDRD) Non-Af 96 BUN/Creatinine Ratio 15.8 Glucose 98 Calcium 9.0 Urine Color Urine Clarity Urine pH Ur Specific [place] Urine Protein Urine Glucose (UA) Urine Ketones Urine Occult Blood Urine Nitrite Urine Bilirubin Urine Urobilinogen Ur Leukocyte Esterase Urine RBC Urine WBC Ur Squamous Epith Cells Amorphous Sediment Urine Bacteria Hyaline Casts Urine Mucus Urine Test Urine Opiates Screen Urine Methadone Screen Ur Barbiturates Screen Valproic Acid 27 L Ur Phencyclidine Scrn Ur Amphetamines Screen MDMA (Ecstasy) Screen U Benzodiazepines Scrn Urine Cocaine Screen U Cannabinoids Screen Ur Drug Screen Comment Ethyl Alcohol < 3.0 08/09/22 08/09/22 03:40 03:40 WBC RBC Hgb Hct MCV MCH MCHC RDW Std Deviation RDW Coeff of Elena Plt Count MPV Immature Gran % (Auto) Neut % (Auto) Lymph % (Auto) [place] % (Auto) Eos % (Auto) Baso % (Auto) Absolute Neuts (auto) Absolute Lymphs (auto) Nucleated RBC % Sodium Potassium Chloride Carbon Dioxide Anion Gap BUN Creatinine Estim Creat Clear Calc Est GFR (MDRD) Af Amer Est GFR (MDRD) Non-Af BUN/Creatinine Ratio Glucose Calcium Urine Color Yellow Urine Clarity Sl. Cloudy Urine pH 6.0 Ur Specific [place] 1.015 Urine Protein 15 H Urine Glucose (UA) Normal Urine Ketones Negative Urine Occult Blood Negative Urine Nitrite Negative Urine Bilirubin Negative Urine Urobilinogen Normal Ur Leukocyte Esterase 100 H Urine RBC 0 SEEN Urine WBC 10-25 SEEN Ur Squamous Epith Cells 10-25 SEEN Amorphous Sediment 1+ Urine Bacteria 3+ Hyaline Casts 0-5 SEEN Urine Mucus 0 SEEN Urine Test Negative Urine Opiates Screen NEGATIVE Urine Methadone Screen NEGATIVE Ur Barbiturates Screen NEGATIVE Valproic Acid Ur Phencyclidine Scrn NEGATIVE Ur Amphetamines Screen NEGATIVE MDMA (Ecstasy) Screen NEGATIVE U Benzodiazepines Scrn NEGATIVE Urine Cocaine Screen NEGATIVE U Cannabinoids Screen NEGATIVE Ur Drug Screen Comment Ethyl Alcohol Discharge Plan Triage Chief Complaint: Mental Health ED Provider: Kaveh Atkins Dx/Rx/DC Orders Clinical Impression: Anxiety, Bipolar disorder Instructions: ED Anxiety Reaction, ED Bipolar Disorder Prescriptions: No Action divalproex 500 MG tablet,delayed release (DR/EC) 500 mg PO BID metformin 500 MG tablet extended release 24 hr 500 mg PO BID topiramate 25 mg tablet 1 tab PO BID Hair,Skin and Nails Tablet 2 tab PO DAILY Primary Care Provider: Brando Diaz Referrals: Brando Diaz MD [Primary Care Provider] - Activity Restrictions/Additional Instructions: Please continue all of your medication as directed by your physician and follow- up with crisis center. If you have any further concerns please return to the ER for repeat evaluation Disposition Disposition: Home, Self Care
[2022-08-13 20:03] LABS: Topiramate < 1.5 ug/mL (2.0-25.0)
== END 2022-08-09 06:46 | disposition home or self-care (01) ==
PROVIDERS: Emergency Provider Emergency Medicine; PCP Family Medicine; Visit Provider Emergency Medicine
DX: F41.9 Anxiety disorder, unspecified (principal); F31.9 Bipolar disorder, unspecified; F84.0 Autistic disorder; Z79.899 Other long term (current) drug therapy; Z79.84 Long term (current) use of oral hypoglycemic drugs
CPT/HCPCS: 80048; 80164; 80201; 80307; 81001; 81025; 82077; 85025; 87811; 99285

== ENCOUNTER 2023-08-03 15:12 | Emergency (ER) | payer MEDICARE, MEDICAID, SELFPAY ==
[2023-08-03 15:13] VITALS: BP 126/77; PULSE 78; RESP 16; TEMP 36.3; O2SAT 99; BMI 34.4
--- OUTSIDE RECORDS SUMMARY | 2023-08-03 17:44 | XMS RPT_ITS | CCD ---
Author Name Unknown Address [address] [facility] [address] [place] [id number] Organization [facility] Care Team Providers Care Nurseryman Assistant Name Role Phone Luisito Grullon MD Primary Care Provider [phone] LUISITO GRULLON Primary Care Unavailable LUISITO GRULLON Primary Care Unavailable LUISITO GRULLON Attending Unavailable LUISITO GRULLON Primary Care Unavailable LUISITO GRULLON Primary Care Unavailable MELECIO PORTILLO Referring Unavailable ALEXIS NICOLE Attending Unavail able LUISITO GRULLON Primary Care Unavailable AUSTIN EPPS Referring Unavailable LUISITO GRULLON Primary Care Unavailable AUSTIN EPPS Attending Unavailable LUISITO GRULLON Primary Care Unavailable MELECIO PORTILLO Attending Unavailable LUISITO GRULLON Primary Care Unavailable Allergies Allergy Classification Reported Allergen(s) Allergy Type Date of Onset Reaction(s) Facility (19 sources) Caseins; Translations: [CASEIN] Drug Allergy 5 Mental Status Change [facility] (19 sources) Cat; Translations: [CATS] Propensity to adverse reactions 8 [facility] (18 sources) cow milk allergenic extract; Translations: [MILK] Drug Allergy 2 Other: See Comments [facility] (8 sources) [place] fruit; Translations: [CITRUS AND DERIVATIVES] Drug Allergy 3 Anaphylaxis [facility] (8 sources) Lactase; Translations: [LACTASE] Drug Allergy 5 Mental Status Change [facility] (8 sources) Wheat gluten extract; Translations: [GLUTEN] Drug Allergy 5 Intolerance [facility] Medications Current Medications Medication Drug Class(es) Dates Sig (Normalized) Sig (Original) ARIPiprazole 20 mg oral tablet (2 sources) Atypical Antipsychotic Start: 04-07-2021 End: 01-22-2022 take 1 tablet by mouth once daily ARIPiprazole (ABILIFY) 20 mg tablet Take 1 tablet by mouth once daily. 0 04/07/2021 01/22/2022 Discontinued Completed/Discontinued Medications Medication Drug Class(es) Dates Sig (Normalized) Sig (Original) asenapine 5 mg sublingual tablet (1 source) Atypical Antipsychotic End: 04-30-2021 take 5 mg under the tongue twice daily asenapine sublingual (SAPHRIS) 5 mg subl Dissolve under the tongue twice daily. 0 04/30/2021 Discontinued (Course of therapy completed) Problems Active Problems Problem Classification Problem Date Documented Date Episodic/Chronic Abdominal pain (1 source) Pain in female pelvis; Translations: [Pelvic and perineal pain] Episodic Asthma (18 sources) Unspecified asthma, uncomplicated; Translations: [Asthma, unspecified type, unspecified] Onset: 02-25-2008 02-25-2008 Chronic Disorders usually diagnosed in infancy, childhood, or adolescence (20 sources) Autistic disorder; Translations: [Autistic disorder] Onset: 02-25-2008 03-04-2020 Chronic Essential hypertension (2 sources) Hypertensive disorder; Translations: [Essential (primary) hypertension] Onset: 04-22-2023 04-22-2023 Chronic Genitourinary symptoms and ill-defined conditions (1 source) Scalding pain on urination ; Translations: [Dysuria] 05-17-2023 Episodic Immunizations and screening for infectious disease (9 sources) Patient encounter status; Translations: [Encounter for screening for infections with a predominantly sexual mode of transmission] Onset: 04-22-2023 Episodic Mood disorders (9 sources) Bipolar disorder; Translations: [Bipolar disorder, unspecified] Onset: 10-19-2022 10-19-2022 Chronic Other endocrine disorders (5 sources) Polycystic ovary syndrome; Translations: [Polycystic ovarian syndrome] Chronic Other endocrine disorders (1 source) Polycystic ovarian syndrome; Translations: [PCOS (polycystic ovarian syndrome)] Onset: 04-22-2023 Chronic Other female genital disorders (1 source) Premenstrual tension syndrome; Translations: [Premenstrual tension syndrome] Chronic Other female genital disorders (1 source) Vaginal discharge; Translations: [Other specified noninflammatory disorders of vagina] 05-17-2023 Episodic Other nutritional; endocrine; and metabolic disorders (5 sources) Obese class II; Translations: [Obesity, unspecified] Chronic Other nutritional; endocrine; and metabolic disorders (1 source) Obesity, unspecified; Translations: [Obesity, Class II, BMI 35-39.9] Onset: 04-22-2023 Chronic Schizophrenia and other psychotic disorders (20 sources) Psychotic disorder; Translations: [Unspecified psychosis not due to a substance or known physiological condition] Onset: 02-25-2008 02-25-2008 Chronic Past or Other Problems Problem Classification Problem Date Documented Da te Episodic/Chronic Other aftercare (1 source) Other prison (current) drug therapy; Translations: [On angiotensin receptor blockers (ARB)] Onset: 01-22-2023 Episodic Other circulatory disease (19 sources) Elevated blood-pressure reading without diagnosis of hypertension; Translations: [Elevated blood-pressure reading, without diagnosis of hypertension] Onset: 09-01-2018 11-17-2018 Episodic Other nutritional; endocrine; and metabolic disorders (20 sources) Weight gain; Translations: [Abnormal weight gain] Onset: 07-15-2010 Episodic Other nutritional; endocrine; and metabolic disorders (1 source) Abnormal weight gain; Translations: [Weight gain] Onset: 07-15-2010 Episodic Residual codes; unclassified (18 sources) Hallucinations; Translations: [Hallucinations, unspecified] Onset: 02-20-2009 02-20-2009 Episodic Spondylosis; intervertebral disc disorders; other back problems (18 sources) Lumbar radiculopathy; Translations: [Radiculopathy, lumbar region] Onset: 02-26-2020 02-26-2020 Episodic Sprains and strains (18 sources) Sprain of ankle; Translations: [Sprain of unspecified ligament of unspecified ankle, initial encounter] Onset: 08-27-2010 08-27-2010 Episodic Results Test Name Value Interpretation Reference Range Facil ity Vital Signs Date Time Vital Sign Value Performing Clinician Regina holliday 05-17-2023 10:14-0500 Body temperature 98.1 [degF] Subha Camejo PA-C Work Phone: [facility] 05-17-2023 10:14-0500 Body weight 91.17 kg Subha Camejo PA-C Work Phone: [facility] 05-17-2023 10:14-0500 Diastolic blood pressure 80 mm[Hg] Subha Athy PA-C Work Phone: [facility] 05-17-2023 10:14-0500 Heart rate 68 /min Subha Athy PA-C Work Phone: [facility] 05-17-2023 10:14-0500 Respiratory rate 16 /min Subha Athy PA-C Work Phone: [facility] 05-17-2023 10:14-0500 SaO2% (BldA) [Mass fraction] 99 % Subha Athy PA-C Work Phone: [facility] 05-17-2023 10:14-0500 Systolic blood pressure 122 mm[Hg] Subha Athy PA-C Work Phone: [facility] 04-22-2023 12:46-0400 Body weight 89.81 kg Austin Tannhof BUTTON SPINDLER.FENCE MAKING MACHINE OPERATOR Work Phone: [facility] 04-22-2023 12:46-0400 Diastolic blood pressure 90 mm[Hg] Austin Tannhof BUTTON SPINDLER.FENCE MAKING MACHINE OPERATOR Work Phone: [facility] 04-22-2023 12:46-0400 Heart rate 83 /min Austin Tannhof BUTTON SPINDLER.FENCE MAKING MACHINE OPERATOR Work Phone: [facility] 04-22-2023 12:46-0400 Respiratory rate 16 /min Austin Tannhof BUTTON SPINDLER.FENCE MAKING MACHINE OPERATOR Work Phone: [facility] 04-22-2023 12:46-0400 SaO2% (BldA) [Mass fraction] 97 % Austin Tannhof BUTTON SPINDLER.FENCE MAKING MACHINE OPERATOR Work Phone: [facility] 04-22-2023 12:46-0400 Systolic blood pressure 136 mm[Hg] Austin Tannhof BUTTON SPINDLER.FENCE MAKING MACHINE OPERATOR Work Phone: [facility] 04-20-2023 15:18-0400 Body height 165.1 cm Melecio Portillo MD Work Phone: [facility] 04-20-2023 15:18-0400 Body weight 89.36 kg Melecio Portillo MD Work Phone: [facility] 04-20-2023 15:18-0400 Diastolic blood pressure 80 mm[Hg] Melecio Portillo MD Work Phone: [facility] 04-20-2023 15:18-0400 Systolic blood pressure 112 mm[Hg] Melecio Portillo MD Work Phone: [facility] 06-15-2022 13:06-0500 Diastolic blood pressure 84 mm[Hg] Erasmo Antonino BUTTON SPINDLER.FENCE MAKING MACHINE OPERATOR Work Phone: [facility] 06-15-2022 13:06-0500 Systolic blood pressure 134 mm[Hg] Erasmo Antonino BUTTON SPINDLER.FENCE MAKING MACHINE OPERATOR Work Phone: [facility] 06-15-2022 12:48-0500 Body height 165.1 cm Erasmo Antonino BUTTON SPINDLER.FENCE MAKING MACHINE OPERATOR Work Phone: [facility] 06-15-2022 12:48-0500 Body temperature 99.61 [degF] Erasmo Antonino BUTTON SPINDLER.FENCE MAKING MACHINE OPERATOR Work Phone: [facility] 06-15-2022 12:48-0500 Body weight 101.61 kg Erasmo Antonino BUTTON SPINDLER.FENCE MAKING MACHINE OPERATOR Work Phone: [facility] 06-15-2022 12:48-0500 Heart rate 82 /min Erasmo Antonino BUTTON SPINDLER.FENCE MAKING MACHINE OPERATOR Work Phone: [facility] 06-15-2022 12:48-0500 Respiratory rate 20 /min Erasmo Antonino BUTTON SPINDLER.FENCE MAKING MACHINE OPERATOR Work Phone: [facility] 06-15-2022 12:48-0500 SaO2% (BldA) [Mass fraction] 97 % Erasmo Antonino BUTTON SPINDLER.FENCE MAKING MACHINE OPERATOR Work Phone: [facility] 01-22-2022 09:37-0400 Body weight 98.43 kg Melecio Portillo MD Work Phone: [facility] 01-22-2022 09:37-0400 Diastolic blood pressure 68 mm[Hg] Melecio Portillo MD Work Phone: [facility] 01-22-2022 09:37-0400 Systolic blood pressure 120 mm[Hg] Melecio Portillo MD Work Phone: [facility] 01-16-2022 16:33-0400 Body height 166 cm Melecio Portillo MD Work Phone: [facility] 01-16-2022 16:33-0400 Body weight 98.43 kg Melecio Portillo MD Work Phone: [facility] 01-16-2022 16:33-0400 Diastolic blood pressure 62 mm[Hg] Melecio Portillo MD Work Phone: [facility] 01-16-2022 16:33-0400 Systolic blood pressure 96 mm[Hg] Melecio Portillo MD Work Phone: [facility] Encounters Encounter Date Encounter Type Care Provider Facility Start: 07-07-2023 End: 07-08-2023 ambulatory LUISITO Nieto [facility] Facility:[facility] Start: 05-18-2023 ambulatory Melecio Nieto Work Phone: OB/Gynecology Procedures Date Procedure Procedure Detail Performing Clinician Start: 05-17-2023 End: 05-17-2023 Urnls dip stick/tablet rgnt auto w/o microscopy Subha Camejo PA-C Work Phone: Start: 04-22-2023 INFLUENZA VACCINE, A GE 6 MO - 64 YR, QUADRIVALENT (AFLURIA, FLULAVAL, FLUZONE) Austin Epps BUTTON SPINDLER.FENCE MAKING MACHINE OPERATOR Work Phone: Start: 06-15-2022 INFLUENZA VACCINE QUADRIVALENT 6 MO - 64 YRS IM Erasmo Villagomez BUTTON SPINDLER.FENCE MAKING MACHINE OPERATOR Work Phone: Start: 06-15-2022 PFIZER-BIONTECH COVI D-19 BIVALENT BOOSTER VACCINE, AGE 12+ YR Erasmo Villagomez BUTTON SPINDLER.FENCE MAKING MACHINE OPERATOR Work Phone: Start: 12-26-2021 Adult depression scr eening assessment Melecio Portillo MD Work Phone: Plan of Treatment Date Care Activity Detail Author Start: 06-15-2032 Urine microalbumin profile [facility] Start: 01-16-2025 PAP TESTING PAP TESTING [facility] Start: 07-05-2023 End: 10-04-2023 Ammonia [Moles/volume] in Plasma AMMONIA BLD Lab Routine Bipolar affective disorder, remission status unspecified (HCC) Schizoaffective disorder, unspecified type (HCC) Expected: 07/05/2023, Expires: 10/04/2023 [facility] Work Phone: Immunizations Immunization Date Immunization Notes Care Provider Ruby parekh 04-22-2023 influenza, injectabl e, quadrivalent, contains preservative Austin Epps BUTTON SPINDLER.FENCE MAKING MACHINE OPERATOR Work Phone: [facility] 06-15-2022 COVID-19 booster vaccine, age 12+ yr, bivalent ([employer]) Erasmo Antonino BUTTON SPINDLER.FENCE MAKING MACHINE OPERATOR Work Phone: [facility] 06-15-2022 influenza, injectabl e, quadrivalent, contains preservative Erasmo Antonino BUTTON SPINDLER.FENCE MAKING MACHINE OPERATOR Work Phone: [facility] 06-15-2022 tetanus toxoid, reduced diphtheria toxoid, and acellular pertussis vaccine, adsorbed Erasmo Antonino BUTTON SPINDLER.FENCE MAKING MACHINE OPERATOR Work Phone: [facility] 06-15-2022 influenza virus vaccine, unspecified formulation Melecio Portillo MD Work Phone: [facility] 08-31-2014 human papilloma viru s vaccine, quadrivalent Luisito Grullon MD Work Phone: [facility] 05-01-2014 human papilloma viru s vaccine, quadrivalent Luisito Grullon MD Work Phone: [facility] 03-01-2014 human papilloma viru s vaccine, quadrivalent Luisito Grullon MD Work Phone: [facility] Work Phone: 06-16-2012 influenza virus vaccine, unspecified formulation Luisito Grullon MD Work Phone: [facility] 02-22-2011 influenza virus vaccine, unspecified formulation Luisito Grullon MD Work Phone: [facility] Work Phone: 12-03-2009 tetanus toxoid, reduced diphtheria toxoid, and acellular pertussis vaccine, adsorbed Luisito Grullon MD Work Phone: [facility] Payers Date Payer Category Payer Unknown [id number] 2020 Medicare [facility] MEDICARE [facility] DUAL COMPLETE HMO SNP [id number] 2020-Present [phone] [address] [place] [address] Medicare [id number] 2020 Medicare [id number] 2019 Medicaid [id number] 2019 Medicaid [facility] MEDICAID MYC ARE [facility] MEDICAID [id number] 2019-Present [phone] [address] [place] [address] Medicaid [id number] 2019 Medicaid [id number] Social History Date Type Detail Facility Start: 10-22-2011 End: 06-15-2022 Tobacco smoking status NHIS Never smoked tobacco [facility] Start: 04-02-2020 End: 05-17-2023 Alcohol intake Current non-drinker of alcohol (finding) [facility] Start: 02-19-2020 End: 06-11-2022 History SDOH Alcohol Frequency 2 [facility] Start: 02-19-2020 End: 06-11-2022 History SDOH Alcohol Std Drinks 1 [facility] Start: 02-19-2020 End: 06-11-2022 History SDOH Social Connections Phone 5 [facility] Start: 02-19-2020 End: 06-11-2022 History SDOH Social Connections Meetings 3 [facility] Start: 02-19-2020 End: 06-11-2022 History SDOH Social Connections Living 7 [facility] Start: 02-19-2020 Education 16 [facility] Start: 1995 Sex Assigned At Female C [facility] Start: 05-26-2021 End: 06-25-2021 Exposure to SARS-CoV-2 (event) Unable to assess [facility] Start: 12-26-2021 History SDOH Alcohol Std Drinks 98 [facility] Start: 01-06-2022 End: 01-22-2022 Exposure to SARS-CoV-2 (event) Not sure [facility] Start: 10-22-2011 End: 06-15-2022 Tobacco use and exposure Smokeless tobacco non-user [facility] Start: 06-11-2022 History SDOH Alcohol Std Drinks 0 [facility] Start: 06-11-2022 History SDOH Social Connections Get Together 4 [facility] Start: 06-11-2022 End: 11-19-2022 History of Social function [facility] Start: 06-11-2022 End: 11-19-2022 Social connection and isolation panel [facility] Do you belong to any clubs or organizations such as scientologist groups, unions, [email or web address] or athletic groups, or school groups? No [facility] Are you now , , , , never or living with a partner? Never [facility] How often to you hav e a drink containing alcohol? Never [facility] How many standard dr inks containing alcohol do you have on a typical day? Patient does not drink [facility] How hard is it for y ou to pay for the very basics like food, housing, medical care, and heating Hard [facility] Do you feel stress - tense, restless, nervous, or anxious, or unable to sleep at night because your mind is troubled all the time - these days [OSQ] Very much [facility] (I/We) worried wheth er (my/our) food would run out before (I/we) got money to buy more. Often true [facility] Start: 02-08-2020 Gender identity Identifies as female gender (finding) [facility] Start: 02-08-2020 Sexual orientation Heterosexual (lisa branch) [facility] Clinical Notes 03-11-2021 to 05-18-2023 Telephone Encounter - Latonya Hoyt - 05/18/2023 2:43 PM ESTTelephone Encounter - Viry Portillo APRN.FRANSISCO - 05/18/2023 1:55 PM ESTTelephone Encounter - Mylene Wong RN - 05/18/2023 11:09 AM EST Note Date & Type Note [facility] 05-18-2023 Miscellaneous Notes seen in mychart. Latonya Hoyt Urine culture did not produce a significant amount of bacteria. Patient should continue treatment plan as discussed with provider. documented in this encounter [facility] 05-18-2023 Miscellaneous Notes Patient given message and will call back to schedule an appointment. She was told this could be a virtual appt with Dr Portillo or with a TRANSFER WORKER With her htn & topamax and ocp is not the best options. Please schedule her a visit to discuss options. Can be with a FENCE MAKING MACHINE OPERATOR. Melecio Portillo MD Patient was seen on [facility] yesterday. Has been on Sprintec in the past. Has been diagnosed with HTN documented in this encounter [facility] 05-18-2023 Miscellaneous Notes BV Positive. RX Flagyl [place] message sent. documented in this encounter [facility] 05-17-2023 Note HNO ID: [id number] Author: Subha Camejo PA-C Service: ? Author Type: Physician Software Installer Type: Progress Notes Filed: 05/17/2023 11:09 AM Note Text: This note was created using [employer]ote[employer]. Subjective Juan Burnham is a 28 year old female. HPI Presents with a chief complaint of dysuria and vaginal discharge. She states this has been going on for about a week. She had some cramping initially that had gotten better. Her last menstrual cycle was April 30 and normal for her. She is sexually active with her . She states she had had pain during sex when this started. They did use a condom. She denies back pain or vomiting. Does have a history of PCOS. Review of Systems Constitutional: Negative. HENT: Negative. Eyes: Negative. Respiratory: Negative. Cardiovascular: Negative. Gastrointestinal: Negative. Genitourinary: Positive for dysuria, pelvic pain, vaginal discharge and vaginal pain. Negative for flank pain and frequency. Musculoskeletal: Negative. All other systems reviewed and are negative. PAST MEDICAL HISTORY Diagnosis Date Autistic disorder, current or active state Bipolar disorder (manic depression) ([facility]) Schizoaffective disorder ([facility]) Current Outpatient Medications Medication Sig Dispense Refill propranolol (INDERAL) 60 mg tablet Take 1 tablet by mouth two times a day. 60 tablet 11 metFORMIN (GLUCOPHAGE) 500 mg tablet Take 1 tablet by mouth two times a day with meals. 60 tablet 11 Etonogestrel-Ethinyl Estradiol (NUVARING) 0.12-0.015 mg/24 hr vaginal ring Use 1 Each vaginally as directed. 1 Each 14 lithium carbonate ER 300 mg CR tablet Take 1 tablet by mouth once daily. busPIRone (BUSPAR) 10 mg tablet Take 1 tablet by mouth twice daily. topiramate (TOPAMAX) 25 mg tablet Take 1 tablet by mouth once daily. venlafaxine ER (EFFEXOR XR) 75 mg 24 hr capsule Take 1 capsule by mouth once daily. divalproex DR (DEPAKOTE) 500 mg EC tablet Take 1 tablet by mouth once daily. PNV no.153/FA/om3/dha/epa/fish ( GUMMIES ORAL) Take by mouth. mv-min/iron/folic/calcium/vitK (WOMEN'S MULTIVITAMIN ORAL) Take by mouth. (Patient not taking: Reported on 05/17/2023) No current facility-administered medications for this visit. PAST SURGICAL HISTORY Procedure Laterality Date NONE FAMILY HISTORY Problem Relation Age of Onset Diabetes Maternal Grandmother Diabetes Maternal Grandfather Insulin shots Hypertension Maternal Grandfather Stroke Maternal Grandfather TIA's Diabetes Paternal Grandmother Heart Paternal Grandmother Diabetes Maternal Aunt Maternal great-aunt Stroke Maternal Uncle Social History Tobacco Use Smoking status: Never Smokeless tobacco: Never Vaping Use Vaping Use: Never used Substance Use Topics Alcohol use: No Drug use: No Objective BP 122/80 Pulse 68 Temp 36.7 ?C (98.1 ?F) Resp 16 Wt 91.2 kg (201 lb) LMP 03/08/2023 (Exact Date) SpO2 99% BMI 33.45 kg/m? Physical Exam Vitals reviewed. Constitutional: Appearance: Normal appearance. HENT: Head: Normocephalic and atraumatic. Abdominal: Palpations: Abdomen is soft. Tenderness: There is no abdominal tenderness. Genitourinary: Comments: Patient has small amount of white discharge in the vaginal canal. No lesions on the cervix. No vesicles. No abnormalities externally. Skin: General: Skin is warm and dry. Findings: No rash. Neurological: General: No focal deficit present. Mental Status: She is alert. Assessment and Plan ASSESSMENT/PLAN: 1. Burning with urination - ICD9: 788.1, ICD10: R30.0 (primary diagnosis) Urine dip showed no infection. - UA DIP, URINE (POC) - URINE CULTURE - GONORRHEA/CHLAMYDIA NAAT - BACTERIAL VAGINOSIS NAAT - OCTAVIO/TRICHOMONAS NAAT - HCG QUAL UR B/O 2. Vaginal discharge - ICD9: 623.5, ICD10: N89.8 I gave the patient an option of a pelvic exam versus self swabs as she states she is very sensitive to speculum exam. She did prefer to have a pelvic exam. Swabs obtained, will call on results. Patient agreeable with plan. - GONORRHEA/CHLAMYDIA NAAT - BACTERIAL VAGINOSIS NAAT - OCTAVIO/TRICHOMONAS NAAT - HCG QUAL UR B/O- negative in office Subha Camejo PA-C [facility] 05-17-2023 History of Presen t illness Narrative This note was created using NoteWriter. Subjective Juan Burnham is a 28 year old female. HPI Presents with a chief complaint of dysuria and vaginal discharge. She states this has been going on for about a week. She had some cramping initially that had gotten better. Her last menstrual cycle was April 30 and normal for her. She is sexually active with her . She states she had had pain during sex when this started. They did use a condom. She denies back pain or vomiting. Does have a history of PCOS. Review of Systems Constitutional: Negative. HENT: Negative. Eyes: Negative. Respiratory: Negative. Cardiovascular: Negative. Gastrointestinal: Negative. Genitourinary: Positive for dysuria, pelvic pain, vaginal discharge and vaginal pain. Negative for flank pain and frequency. Musculoskeletal: Negative. All other systems reviewed and are negative. PAST MEDICAL HISTORY Diagnosis Date Autistic disorder, current or active state Bipolar disorder (manic depression) ([facility]) Schizoaffective disorder ([facility]) Current Outpatient Medications Medication Sig Dispense Refill propranolol (INDERAL) 60 mg tablet Take 1 tablet by mouth two times a day. 60 tablet 11 metFORMIN (GLUCOPHAGE) 500 mg tablet Take 1 tablet by mouth two times a day with meals. 60 tablet 11 Etonogestrel-Ethinyl Estradiol (NUVARING) 0.12-0.015 mg/24 hr vaginal ring Use 1 Each vaginally as directed. 1 Each 14 lithium carbonate ER 300 mg CR tablet Take 1 tablet by mouth once daily. busPIRone (BUSPAR) 10 mg tablet Take 1 tablet by mouth twice daily. topiramate (TOPAMAX) 25 mg tablet Take 1 tablet by mouth once daily. venlafaxine ER (EFFEXOR XR) 75 mg 24 hr capsule Take 1 capsule by mouth once daily. divalproex DR (DEPAKOTE) 500 mg EC tablet Take 1 tablet by mouth once daily. PNV no.153/FA/om3/dha/epa/fish ( GUMMIES ORAL) Take by mouth. mv-min/iron/folic/calcium/vitK (WOMEN'S MULTIVITAMIN ORAL) Take by mouth. (Patient not taking: Reported on 05/17/2023) No current facility-administered medications for this visit. PAST SURGICAL HISTORY Procedure Laterality Date NONE FAMILY HISTORY Problem Relation Age of Onset Diabetes Maternal Grandmother Diabetes Maternal Grandfather Insulin shots Hypertension Maternal Grandfather Stroke Maternal Grandfather TIA's Diabetes Paternal Grandmother Heart Paternal Grandmother Diabetes Maternal Aunt Maternal great-aunt Stroke Maternal Uncle Social History Tobacco Use Smoking status: Never Smokeless tobacco: Never Vaping Use Vaping Use: Never used Substance Use Topics Alcohol use: No Drug use: No Objective BP 122/80 Pulse 68 Temp 36.7 C (98.1 F) Resp 16 Wt 91.2 kg (201 lb) LMP 03/08/2023 (Exact Date) SpO2 99% BMI 33.45 kg/m Physical Exam Vitals reviewed. Constitutional: Appearance: Normal appearance. HENT: Head: Normocephalic and atraumatic. Abdominal: Palpations: Abdomen is soft. Tenderness: There is no abdominal tenderness. Genitourinary: Comments: Patient has small amount of white discharge in the vaginal canal. No lesions on the cervix. No vesicles. No abnormalities externally. Skin: General: Skin is warm and dry. Findings: No rash. Neurological: General: No focal deficit present. Mental Status: She is alert. Assessment and Plan ASSESSMENT/PLAN: 1. Burning with urination - ICD9: 788.1, ICD10: R30.0 (primary diagnosis) Urine dip showed no infection. - UA DIP, URINE (POC) - URINE CULTURE - GONORRHEA/CHLAMYDIA NAAT - BACTERIAL VAGINOSIS NAAT - OCTAVIO/TRICHOMONAS NAAT - HCG QUAL UR B/O 2. Vaginal discharge - ICD9: 623.5, ICD10: N89.8 I gave the patient an option of a pelvic exam versus self swabs as she states she is very sensitive to speculum exam. She did prefer to have a pelvic exam. Swabs obtained, will call on results. Patient agreeable with plan. - GONORRHEA/CHLAMYDIA NAAT - BACTERIAL VAGINOSIS NAAT - OCTAVIO/TRICHOMONAS NAAT - HCG QUAL UR B/O- negative in office Subha Camejo PA-C documented in this encounter [facility] 04-22-2023 Note HNO ID: [id number] Author: Austin Epps APRN.FRANSISCO Service: ? Author Type: Nurse Practitioner Type: Progress Notes Filed: 04/22/2023 1:52 PM Note Text: This is a 28 year old female who presents today with: Patient presents with: 6 Month Exam HISTORY OF PRESENT ILLNESS: Juan Burnham is a 28 year old female. Patient presents with: 6 Month Exam 6 month follow up HTN: No chest pains, dizziness, or SOB.Taking Propranolol 60 mg 1 pill BID. PCOS: Follows with [facility] Dr. Portillo. Taking Metformin 500 mg 1 pill BID. Checks sugars at home 80-100's. Follows gluten free and dairy free diet. Psych: Follows with Dr. Appiah once a month. Pt has autistic disorder, bipolar disorder, manic depression and schizoeffective disorder. Increase stress with up coming wedding, not much appetite at times. Has noticed some bloating. Trying to increase fiber in the diet. Vaccine: would like Flu vaccine. PAST MEDICAL HISTORY: PAST MEDICAL HISTORY Diagnosis Date Autistic disorder, current or active state Bipolar disorder (manic depression) (HCC) Schizoaffective disorder (HCC) PAST SURGICAL HISTORY Procedure Laterality Date NONE ALLERGIES Henderson And Derivatives, Casein, Cats, Dairy Aid [Lactase], Gluten, and Milk MEDICATIONS Current Outpatient Medications Medication Sig Etonogestrel-Ethinyl Estradiol (NUVARING) 0.12-0.015 mg/24 hr vaginal ring Use 1 Each vaginally as directed. lithium carbonate ER 300 mg CR tablet Take 1 tablet by mouth once daily. busPIRone (BUSPAR) 10 mg tablet Take 1 tablet by mouth twice daily. perphenazine 4 mg tablet Take 1 tablet by mouth once daily. topiramate (TOPAMAX) 25 mg tablet Take 1 tablet by mouth once daily. propranolol (INDERAL) 60 mg tablet Take 1 tablet by mouth twice daily. metFORMIN (GLUCOPHAGE) 500 mg tablet Take 1 tablet by mouth twice daily with meals. mv-min/iron/folic/calcium/vitK (WOMEN'S MULTIVITAMIN ORAL) Take by mouth. venlafaxine ER (EFFEXOR XR) 75 mg 24 hr capsule Take 1 capsule by mouth once daily. divalproex DR (DEPAKOTE) 500 mg EC tablet Take 1 tablet by mouth once daily. No current facility-administered medications for this visit. FAMILY HISTORY Problem Relation Age of Onset Diabetes Maternal Grandmother Diabetes Maternal Grandfather Insulin shots Hypertension Maternal Grandfather Stroke Maternal Grandfather TIA's Diabetes Paternal Grandmother Heart Paternal Grandmother Diabetes Maternal Aunt Maternal great-aunt Stroke Maternal Uncle Social History Tobacco Use Smoking status: Never Smokeless tobacco: Never Vaping Use Vaping Use: Never used Substance Use Topics Alcohol use: No Drug use: No REVIEW OF SYSTEMS GENERAL: No weight loss, malaise or fevers/chills HEENT: Negative for frequent or significant headaches, No changes in hearing or vision. NECK: Negative for lumps, goiter, pain and significant neck swelling RESPIRATORY: Negative for cough, hemoptysis, wheezing, dyspnea or shortness of breath CARDIOVASCULAR: Negative for chest pain, leg swelling, orthopnea, or palpitations GI: No nausea, vomiting, or diarrhea/constipation. No hematochezia/melena. No heartburn or reflux symptoms. : No history of dysuria, frequency or incontinence MUSCULOSKELETAL: Negative for joint pain or swelling. SKIN: Negative for lesions, rash, and itching ENDOCRINE: Negative for cold or heat intolerance, polyuria, polydipsia and goiter NEURO: No history of headaches, syncope, paralysis, seizures or tremors MOOD: Negative for depression, anxiety, or suicidal ideation. EXAM: BP 136/90 Pulse 83 Resp 16 Wt 89.8 kg (198 lb) LMP 03/08/2023 (Exact Date) SpO2 97% BMI 32.95 kg/m? PHYSICAL EXAM: General Appearance: Well appearing, alert, in no acute distress, well-hydrated, well nourished. Skin: Skin color, texture, turgor normal, no suspicious rashes or lesions. Head: Normocephalic, no masses, lesions, tenderness or abnormalities. Eyes: Anicteric sclera. Extraocular movements are intact. Lungs: Lungs clear to auscultation. No wheezing, rhonchi, rales. Heart: RRR without murmur, gallop, or rubs. No ectopy. Extremities: No deformities, edema, skin discoloration, clubbing or cyanosis. Good capillary refill. Peripheral Pulses: Normal, Capillary refill <2secs, strong peripheral pulses, Pulses palpable. Neurologic: Gait normal. Sensation grossly intact. ASSESSMENT/PLAN: 1. Hypertension, unspecified type - ICD9: 401.9, ICD10: I10 (primary diagnosis) - Controlled - Continue current medications - Recommend home blood pressure monitoring, to bring results to next visit - Encouraged sodium restriction, DASH or Mediterranean diet - Recommend regular aerobic exercise - Discussed need for and benefit of weight loss. BMI 32.95 kg/(m2) - PROPRANOLOL 60 MG TABLET 2. Autistic disorder - ICD9: 299.00, ICD10: F84.0 - Stable 3. Bipolar affective disorder, remission status unspecified (HCC (more content not included)... [facility] 04-22-2023 Instructions Austin Epps APRN.CNP - 04/22/2023 1:16 PM EDT Get repeat labs July 05 or later. Continue to take all medication as prescribed. Keep scheduled appointments with Dr. Colin Flu vaccine given Increase water and fiber in the diet to help bowel movements. Follow up in 6 months or sooner as needed. documented in this encounter [facility] 04-22-2023 History of Presen t illness Narrative This is a 28 year old female who presents today with: Patient presents with: 6 Month Exam HISTORY OF PRESENT ILLNESS: Juan Burnham is a 28 year old female. Patient presents with: 6 Month Exam 6 month follow up HTN: No chest pains, dizziness, or SOB.Taking Propranolol 60 mg 1 pill BID. PCOS: Follows with [facility] Dr. Portillo. Taking Metformin 500 mg 1 pill BID. Checks sugars at home 80-100's. Follows gluten free and dairy free diet. Psych: Follows with Dr. Appiah once a month. Pt has autistic disorder, bipolar disorder, manic depression and schizoeffective disorder. Increase stress with up coming wedding, not much appetite at times. Has noticed some bloating. Trying to increase fiber in the diet. Vaccine: would like Flu vaccine. PAST MEDICAL HISTORY: PAST MEDICAL HISTORY Diagnosis Date Autistic disorder, current or active state Bipolar disorder (manic depression) (HCC) Schizoaffective disorder (HCC) PAST SURGICAL HISTORY Procedure Laterality Date NONE ALLERGIES Henderson And Derivatives, Casein, Cats, Dairy Aid [Lactase], Gluten, and Milk MEDICATIONS Current Outpatient Medications Medication Sig Etonogestrel-Ethinyl Estradiol (NUVARING) 0.12-0.015 mg/24 hr vaginal ring Use 1 Each vaginally as directed. lithium carbonate ER 300 mg CR tablet Take 1 tablet by mouth once daily. busPIRone (BUSPAR) 10 mg tablet Take 1 tablet by mouth twice daily. perphenazine 4 mg tablet Take 1 tablet by mouth once daily. topiramate (TOPAMAX) 25 mg tablet Take 1 tablet by mouth once daily. propranolol (INDERAL) 60 mg tablet Take 1 tablet by mouth twice daily. metFORMIN (GLUCOPHAGE) 500 mg tablet Take 1 tablet by mouth twice daily with meals. mv-min/iron/folic/calcium/vitK (WOMEN'S MULTIVITAMIN ORAL) Take by mouth. venlafaxine ER (EFFEXOR XR) 75 mg 24 hr capsule Take 1 capsule by mouth once daily. divalproex DR (DEPAKOTE) 500 mg EC tablet Take 1 tablet by mouth once daily. No current facility-administered medications for this visit. FAMILY HISTORY Problem Relation Age of Onset Diabetes Maternal Grandmother Diabetes Maternal Grandfather Insulin shots Hypertension Maternal Grandfather Stroke Maternal Grandfather TIA's Diabetes Paternal Grandmother Heart Paternal Grandmother Diabetes Maternal Aunt Maternal great-aunt Stroke Maternal Uncle Social History Tobacco Use Smoking status: Never Smokeless tobacco: Never Vaping Use Vaping Use: Never used Substance Use Topics Alcohol use: No Drug use: No REVIEW OF SYSTEMS GENERAL: No weight loss, malaise or fevers/chills HEENT: Negative for frequent or significant headaches, No changes in hearing or vision. NECK: Negative for lumps, goiter, pain and significant neck swelling RESPIRATORY: Negative for cough, hemoptysis, wheezing, dyspnea or shortness of breath CARDIOVASCULAR: Negative for chest pain, leg swelling, orthopnea, or palpitations GI: No nausea, vomiting, or diarrhea/constipation. No hematochezia/melena. No heartburn or reflux symptoms. : No history of dysuria, frequency or incontinence MUSCULOSKELETAL: Negative for joint pain or swelling. SKIN: Negative for lesions, rash, and itching ENDOCRINE: Negative for cold or heat intolerance, polyuria, polydipsia and goiter NEURO: No history of headaches, syncope, paralysis, seizures or tremors MOOD: Negative for depression, anxiety, or suicidal ideation. EXAM: BP 136/90 Pulse 83 Resp 16 Wt 89.8 kg (198 lb) LMP 03/08/2023 (Exact Date) SpO2 97% BMI 32.95 kg/m PHYSICAL EXAM: General Appearance: Well appearing, alert, in no acute distress, well-hydrated, well nourished. Skin: Skin color, texture, turgor normal, no suspicious rashes or lesions. Head: Normocephalic, no masses, lesions, tenderness or abnormalities. Eyes: Anicteric sclera. Extraocular movements are intact. Lungs: Lungs clear to auscultation. No wheezing, rhonchi, rales. Heart: RRR without murmur, gallop, or rubs. No ectopy. Extremities: No deformities, edema, skin discoloration, clubbing or cyanosis. Good capillary refill. Peripheral Pulses: Normal, Capillary refill <2secs, strong peripheral pulses, Pulses palpable. Neurologic: Gait normal. Sensation grossly intact. ASSESSMENT/PLAN: 1. Hypertension, unspecified type - ICD9: 401.9, ICD10: I10 (primary diagnosis) - Controlled - Continue current medications - Recommend home blood pressure monitoring, to bring results to next visit - Encouraged sodium restriction, DASH or Mediterranean diet - Recommend regular aerobic exercise - Discussed need for and benefit of weight loss. BMI 32.95 kg/(m^2) - PROPRANOLOL 60 MG TABLET 2. Autistic disorder - ICD9: 299.00, ICD10: F84.0 - Stable 3. Bipolar affective disorder, remission status unspecified (HCC) - ICD9: 296.80, ICD10: F31.9 - Stable, continue to take all medication as prescribed. - Keep scheduled appointments with psychiatry. - Labs are due in July - CBC + DIFF - COMP METABOLIC PANEL - LITHIUM BLD - AMMONIA BLD - VALPROIC A/DEPAKENE 4. Schizoaffective disorder, unspecified type (HCC) - ICD9: 295.70, ICD10: F25.9 - Same plan as #3. 5. PCOS (polycystic ovarian syndrome) - ICD9: 256.4, ICD10: E28.2 - Refill provided,] - Continue to work on eating a well-balanced diet, increase protein, vegetables, and get some form of exercise. - Keep scheduled appointments with gynecology. - METFORMIN 500 MG TABLET 6. Obesity, Class II, BMI 35-39.9 - ICD9: 278.00, ICD10: E66.9 - Same plan as #5. 7. Weight gain - ICD9: 783.1, ICD10: R63.5 - Same plan as #5. 8. Encounter for immunization - ICD9: V03.89, ICD10: Z23 - VIS provided. - INFLUENZA VACCINE, AGE 6 MO - 64 YR, QUADRIVALENT (AFLURIA, FLULAVAL, FLUZONE) Follow-up in 6 months or sooner as needed. Discussed treatment plan and patient voices understanding. Patient's questions answered appropriately. Medications and potential side effects were discussed and patient voices understanding. Austin Epps APRN.CNP This note was partially generated using [employer] voice recognition system. Note was reviewed for accuracy. There may be minor misspellings or grammar miscues with [employer] voice recognition. documented in this encounter [facility] 04-20-2023 Note HNO ID: [id number] Author: Melecio Portillo MD Service: ? Author Type: Physician Type: Progress Notes Filed: 04/20/2023 4:28 PM Note Text: Craps Dealer offered: Patient declines. Juan is a 28 year old who presents for an annual gynecologic exam. She is getting later this month. Menses: mostly monthly but will skips a month at times Contraception: Nuva Ring HPV vaccine: Yes Last Pap: 01/26/2022 normal HPV: N/A History of abnormal pap: No Last mammogram: never OB History T0 L0 SAB0 IAB0 Ectopic0 Multiple0 Live Births0 Signal Maintainer History LMP: 03/08/2023, Having periods Age at Menarche: Age at First : Age at Menopause: Signal Maintainer History Comments: Sexual Activity: Not Currently; Male Contraception: Inserts PAST MEDICAL HISTORY Diagnosis Date Autistic disorder, current or active state Bipolar disorder (manic depression) ([facility]) Schizoaffective disorder ([facility]) PAST SURGICAL HISTORY Procedure Laterality Date NONE FAMILY HISTORY Problem Relation Age of Onset Diabetes Maternal Grandmother Diabetes Maternal Grandfather Insulin shots Hypertension Maternal Grandfather Stroke Maternal Grandfather TIA's Diabetes Paternal Grandmother Heart Paternal Grandmother Diabetes Maternal Aunt Maternal great-aunt Stroke Maternal Uncle SOCIAL HISTORY Social History Tobacco Use Smoking status: Never Smokeless tobacco: Never Vaping Use Vaping Use: Never used Substance Use Topics Alcohol use: No Drug use: No REVIEW OF SYSTEMS Abdomen: No abdominal pain, nausea, vomiting, diarrhea, or constipation. No bloating, early satiety, indigestion, or increased flatulence. Bladder: No dysuria, gross hematuria, urinary frequency, urinary urgency, or incontinence. Breast: No breast lumps, nipple d/c, overlying skin changes, redness or skin retraction. Allergies and current medication updated:Yes EXAM: BP 112/80 Ht 5' 5 (1.65m) Wt 197 lb (89.4kg) LMP 03/08/2023 BMI 32.78 kg/(m2). GENERAL: pleasant, female in no apparent distress BREAST: soft, non-tender, symmetric, no dominant mass, normal nipple-areolar complex, no lymphadenopathy, and no nipple discharge CHEST: Normal inspiratory effort ABDOMEN: soft, non-tender, and no masses PELVIC: external genitalia normal, normal Bartholin's glands, urethra, [place]'s glands, no vulvar lesions, normal appearing perineal body and perianal region; declined speculum exam BIMANUAL: uterus normal size, shape and consistency, no adnexal masses, and non-tender RECTOVAGINAL: deferred. NEURO: alert and oriented x3,exam grossly non-focal EXTREMITIES: normal ASSESSMENT/PLAN: 1) Health maintenance: Pap/HPV up to date. Nutrition, exercise and routine health maintenance exams reviewed. 2) Contraception: Nuva Ring - reviewed decreased efficacy with topamax. Contraceptive options reviewed and information provided. 3) STD screening: Declined STD check. 4) Follow up one year or sooner as needed Melecio Portillo MD [facility] 04-20-2023 History of Presen t illness Narrative Craps Dealer offered: Patient declines. Juan is a 28 year old who presents for an annual gynecologic exam. She is getting later this month. Menses: mostly monthly but will skips a month at times Contraception: Nuva Ring HPV vaccine: Yes Last Pap: 01/26/2022 normal HPV: N/A History of abnormal pap: No Last mammogram: never OB History T0 L0 SAB0 IAB0 Ectopic0 Multiple0 Live Births0 Signal Maintainer History LMP: 03/08/2023, Having periods Age at Menarche: Age at First : Age at Menopause: Signal Maintainer History Comments: Sexual Activity: Not Currently; Male Contraception: Inserts PAST MEDICAL HISTORY Diagnosis Date Autistic disorder, current or active state Bipolar disorder (manic depression) ([facility]) Schizoaffective disorder (HCC) PAST SURGICAL HISTORY Procedure Laterality Date NONE FAMILY HISTORY Problem Relation Age of Onset Diabetes Maternal Grandmother Diabetes Maternal Grandfather Insulin shots Hypertension Maternal Grandfather Stroke Maternal Grandfather TIA's Diabetes Paternal Grandmother Heart Paternal Grandmother Diabetes Maternal Aunt Maternal great-aunt Stroke Maternal Uncle SOCIAL HISTORY Social History Tobacco Use Smoking status: Never Smokeless tobacco: Never Vaping Use Vaping Use: Never used Substance Use Topics Alcohol use: No Drug use: No REVIEW OF SYSTEMS Abdomen: No abdominal pain, nausea, vomiting, diarrhea, or constipation. No bloating, early satiety, indigestion, or increased flatulence. Bladder: No dysuria, gross hematuria, urinary frequency, urinary urgency, or incontinence. Breast: No breast lumps, nipple d/c, overlying skin changes, redness or skin retraction. Allergies and current medication updated:Yes EXAM: BP 112/80 Ht 5' 5 (1.65m) Wt 197 lb (89.4kg) LMP 03/08/2023 BMI 32.78 kg/(m^2). GENERAL: pleasant, female in no apparent distress BREAST: soft, non-tender, symmetric, no dominant mass, normal nipple-areolar complex, no lymphadenopathy, and no nipple discharge CHEST: Normal inspiratory effort ABDOMEN: soft, non-tender, and no masses PELVIC: external genitalia normal, normal Bartholin's glands, urethra, [place]'s glands, no vulvar lesions, normal appearing perineal body and perianal region; declined speculum exam BIMANUAL: uterus normal size, shape and consistency, no adnexal masses, and non-tender RECTOVAGINAL: deferred. NEURO: alert and oriented x3,exam grossly non-focal EXTREMITIES: normal ASSESSMENT/PLAN: 1) Health maintenance: Pap/HPV up to date. Nutrition, exercise and routine health maintenance exams reviewed. 2) Contraception: Nuva Ring - reviewed decreased efficacy with topamax. Contraceptive options reviewed and information provided. 3) STD screening: Declined STD check. 4) Follow up one year or sooner as needed Melecio Portillo MD documented in this encounter [facility] 02-16-2023 Miscellaneous Notes Please see pharmacy generated refill request pended below. Pt has scheduled upcoming appointment. Please advise. Gisell Laguna LPN documented in this encounter [facility] 10-19-2022 Note HNO ID: [id number] Author: Luisito Grullon MD Service: ? Author Type: Physician Type: Progress Notes Filed: 10/19/2022 6:18 PM Note Text: Chief Complaint Patient presents with: Wellness HPI Juan Burnham is a 27 year old female who presents here today for physical. Here today with her boyfriend Pb. States that they went to [employer] the Senior year, but did not date at that time, which she regrets. 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 Does not live with boyfriend, until after marriage. Will be starting back into piano lessons soon. Currently not working, working on graduating for Medical billing and coding. Some abd bloating at times. Does get concerned about organs popping or if she has a huge cyst in her stomach. If gas bubbles, wants to know what she can do to help this. HTN: No chest pains, dizziness, or SOB. Is taking Propranolol 60 mg 1 pill BID. Notes some leg edema unsure if this is related to her psych medications or BP. This has been ongoing for 3 years. PCOS: Follows with [facility] Dr. Portillo. She is on Metformin 500 mg 1 pill BID. Checks sugars at home 80-100's. Working on losing weight, down 8 lbs since visit in June. Follows gluten free and dairy free diet. No formal exercise, other then some walking. Wants to get back into karate. Also on Nuvaring, but would like to discuss with them about switching to a pill form. She wants to have normal periods. Noting right now she's not having periods. Psych: Follows with Dr. Appiah once a month, appt next week. Pt has autistic disorder, bipolar disorder, manic depression and schizoeffective disorder. Notes increased autistic/anger outbursts and fatigue. Overall pt feels that she's about a 6/10. [facility], no further admissions. Pt states that she would like to change or stop taking some medications. Would like to get off Permethazine or Idalia. Pt wanting to discuss a lot of her anxiety, bipolar and manic depression. Pt advised to f/u with Psych. HM - Depression questionnaire reviewed. Already seeing Psychiatry. Past medical history, appointments, medications, allergies reviewed. Previous Medical History PAST MEDICAL HISTORY Diagnosis Date Autistic disorder, current or active state Bipolar disorder (manic depression) (HCC) Schizoaffective disorder (HCC) Previous Surgical History PAST SURGICAL HISTORY Procedure Laterality Date NONE Family History FAMILY HISTORY Problem Relation Age of Onset Diabetes Maternal Grandmother Diabetes Maternal Grandfather Insulin shots Hypertension Maternal Grandfather Stroke Maternal Grandfather TIA's Diabetes Paternal Grandmother Heart Paternal Grandmother Diabetes Maternal Aunt Maternal great-aunt Stroke Maternal Uncle Patient Allergies ALLERGIES Allergen Reactions Casein Mental Status Change Cats Milk Other: See Comments irritable Current Medications Current Outpatient Medications on File Prior to Visit Medication Sig propranolol (INDERAL) 60 mg tablet Take 1 tablet by mouth twice daily. metFORMIN (GLUCOPHAGE) 500 mg tablet Take 1 tablet by mouth twice daily with meals. Etonogestrel-Ethinyl Estradiol (NUVARING) 0.12-0.015 mg/24 hr vaginal ring Use 1 Each vaginally as directed. INSERT ONE(1) RING VAGINALLY AND LEAVE IN PLACE FOR FOUR WEEKS, THEN REMOVE AND INSERT NEW NUVARING mv-min/iron/folic/calcium/vitK (WOMEN'S MULTIVITAMIN ORAL) Take by mouth. venlafaxine ER (EFFEXOR XR) 75 mg 24 hr capsule Take 1 capsule by mouth once daily. divalproex DR (DEPAKOTE) 500 mg EC tablet Take 1 tablet by mouth once daily. No current facility-administered medications on file prior to visit. Social History Social History Tobacco Use Smoking status: Never Smokeless tobacco: Never Vaping Use Vaping Use: Never used Substance Use Topics Alcohol use: No Drug use: No EXAM: BP 126/90 Pulse 82 Resp 16 Ht 166.4 cm (5' 5.5 ) Wt 98 kg (216 lb) LMP 01/08/2022 BMI 35.40 kg/m? General Appearance: Well appearing, alert, in no acute distress, well-hydrated, well nourished. and Obese. Lungs: Lungs clear to auscultation. No wheezing, rhonchi, rales.. Heart: RRR without murmur, gallop, or rubs. No ectopy. Abdomen: Normal abdominal exam, Abdomen soft, tender to palpitate. Bowel sounds normal. No masses, organomegaly. Health Maintenance List DEPRESSION ASSESSMENT due on 07/05/2022 PAP TESTING due on 01/16/2025 DTAP,TDAP,TD(3 - Td or Tdap) due on 06/15/2032 INFLUENZA Completed HEPATITIS C SCREENING Completed HIV SCREENING Completed COVID-19 VACCINE Completed HEPATITIS B Discontinued Data reviewed Epic ASSESSMENT/PLAN: 1. Wellness examination - ICD9: V70.0, ICD10: Z00.00 (primary diagnosis) - Counseled on healthy diet and regular exercise - Calcium intake with supplements or by diet of 1000 mg/day for under 50, 1200-1 (more content not included)... [facility] 09-01-2022 Note Patient Outreach (DION MCDERMOTTAV) RYJUAN ([id number]) 1995 F Date Time Provider Department 09/01/22 SHARRI MELO During your visit today, we recorded the following information about you: Sharri Melo MA 09/01/2022 12:19 PM Signed [facility] OUTREACH Action/FYI Left message on patient's voice mail to return my call. [employer] message sent. Patient is on [facility] for the following HM care gaps: Schedule wellness exam for 06/15/23 Advance Directives - Last scanned 02/22/12. Patient Identified by Name and : NO Outreach Outcome/Action Unable to reach patient: Left message Ticketmasterhart message sent Did you use a PCP flex slot to schedule this appointment? N/A Reason for Outreach Care Gap or Scheduling/Wellness visits Payer: Payor: [facility] MEDICAID / Plan: [facility] MEDICAID / Product Type: Medicaid / Care Gap Reviewed:: Annual Wellness visit Reminder: Reminder note to check Health Maintenance for items below Health Maintenance items due: DEPRESSION ASSESSMENT due on 07/05/2022 Navigation Signature: Sharri Melo MA September 01, 2022 8:29 AM Allergies As of Date: 09/01/2022 Noted Allergy Reaction CASEIN 08/31/2014 1 - Mental Status Change CATS 02/25/2008 MILK 01/16/2022 14 - Other: See Comments Comments: irritable Date Reviewed: 06/15/2022 Reviewed by: Erasmo Villagomez APRN.FENCE MAKING MACHINE OPERATOR - Fully Assessed Reason for Visit: Population Health Navigation Outreach [3910] Cmt: [facility] Care Gaps Prescriptions as of 09/01/2022 - propranolol (INDERAL) 60 mg tablet Take 1 tablet by mouth twice daily. - metFORMIN (GLUCOPHAGE) 500 mg tablet Take 1 tablet by mouth twice daily with meals. - Etonogestrel-Ethinyl Estradiol (NUVARING) 0.12-0.015 mg/24 hr vaginal ring Use 1 Each vaginally as directed. INSERT ONE(1) RING VAGINALLY AND LEAVE IN PLACE FOR FOUR WEEKS, THEN REMOVE AND INSERT NEW NUVARING - mv-min/iron/folic/calcium/vitK (WOMEN'S MULTIVITAMIN ORAL) Take by mouth. - venlafaxine ER (EFFEXOR XR) 75 mg 24 hr capsule Take 1 capsule by mouth once daily. - divalproex DR (DEPAKOTE) 500 mg EC tablet Take 1 tablet by mouth once daily. Problem List As Of Date 09/01/2022 Noted Resolved ASTHMA UNSPECIFIED [J45.909] 02/25/2008 PSYCHOSIS NOS [F29] 02/25/2008 Autistic disorder [F84.0] 02/25/2008 Hallucinations [R44.3] 02/20/2009 Weight gain [R63.5] 07/15/2010 Unspecified site of ankle sprain and strain [S9*08/27/2010 Elevated blood pressure reading without diagnos*09/01/2018 Lumbar radiculopathy [M54.16] 02/26/2020 Encounter Status:Closed by SHARRI MELO on 09/01/22 [facility] 09-01-2022 Note HNO ID: [id number] Author: Sharri Melo MA Service: ? Author Type: Information Technology Manager Type: Progress Notes Filed: 09/01/2022 12:19 PM Note Text: POPULATION HEALTH NAVIGATION OUTREACH Action/FYI Left message on patient's voice mail to return my call. MyChart message sent. Patient is on [facility] for the following HM care gaps: Schedule wellness exam for 06/15/23 Advance Directives - Last scanned 02/22/12. Patient Identified by Name and : NO Outreach Outcome/Action Unable to reach patient: Left message MyChart message sent Did you use a PCP flex slot to schedule this appointment? N/A Reason for Outreach Care Gap or Scheduling/Wellness visits Payer: Payor: [facility] MEDICAID / Plan: [facility] MEDICAID / Product Type: Medicaid / Care Gap Reviewed:: Annual Wellness visit Reminder: Reminder note to check Health Maintenance for items below Health Maintenance items due: DEPRESSION ASSESSMENT due on 07/05/2022 Navigation Signature: Sharri Melo MA September 01, 2022 8:29 AM [facility] 09-01-2022 History of Presen t illness Narrative POPULATION HEALTH NAVIGATION OUTREACH Action/FYI Left message on patient's voice mail to return my call. MyChart message sent. Patient is on [facility] for the following HM care gaps: Schedule wellness exam for 06/15/23 Advance Directives - Last scanned 02/22/12. Patient Identified by Name and : NO Outreach Outcome/Action Unable to reach patient: Left message MyChart message sent Did you use a PCP flex slot to schedule this appointment? N/A Reason for Outreach Care Gap or Scheduling/Wellness visits Payer: Payor: [facility] MEDICAID / Plan: [facility] MEDICAID / Product Type: Medicaid / Care Gap Reviewed:: Annual Wellness visit Reminder: Reminder note to check Health Maintenance for items below Health Maintenance items due: DEPRESSION ASSESSMENT due on 07/05/2022 Navigation Signature: Sharri Melo MA September 01, 2022 8:29 AM documented in this encounter [facility] 06-15-2022 History of Presen t illness Narrative Chief Complaint Patient presents with: Immunizations: Flu vaccination Follow Up HPI Juan Burnham is a 27 year old female who presents here today for wellness exam. Following with Dr. Champion with the counseling center. Got a new diagnosis for bipolar disorder. Does not believe that she has schizoaffective disorder. She is withdrawaling or coming off of lithium. She also had an uncle that she was close to have some health issues. She has a follow with Dr. Champion in August. Has a history of elevated BP. She is on propanolol. Does not check her BP. No chest pain, shortness of breath or syncope. She also has history of PCOS, obesity and pre-diabetes. She is on metformin daily. Requesting a refill. Has follow up with [facility] [employer]. Past medical history, appointments, medications, allergies reviewed. Previous Medical History PAST MEDICAL HISTORY Diagnosis Date Autistic disorder, current or active state Bipolar disorder (manic depression) (HCC) Schizoaffective disorder (HCC) Previous Surgical History PAST SURGICAL HISTORY Procedure Laterality Date NONE Family History FAMILY HISTORY Problem Relation Age of Onset Diabetes Maternal Grandmother Diabetes Maternal Grandfather Insulin shots Hypertension Maternal Grandfather Stroke Maternal Grandfather TIA's Diabetes Paternal Grandmother Heart Paternal Grandmother Diabetes Maternal Aunt Maternal great-aunt Stroke Maternal Uncle Patient Allergies ALLERGIES Allergen Reactions Casein Mental Status Change Cats Milk Other: See Comments irritable Current Medications Current Outpatient Medications on File Prior to Visit Medication Sig Etonogestrel-Ethinyl Estradiol (NUVARING) 0.12-0.015 mg/24 hr vaginal ring Use 1 Each vaginally as directed. INSERT ONE(1) RING VAGINALLY AND LEAVE IN PLACE FOR FOUR WEEKS, THEN REMOVE AND INSERT NEW NUVARING LATUDA 80 mg tablet LATUDA 20 mg tablet mv-min/iron/folic/calcium/vitK (WOMEN'S MULTIVITAMIN ORAL) Take by mouth. propranolol (INDERAL) 60 mg tablet TAKE 1 TABLET BY MOUTH TWICE A DAY metFORMIN (GLUCOPHAGE) 500 mg tablet TAKE 1 TABLET BY MOUTH TWICE A DAY WITH MEALS venlafaxine ER (EFFEXOR XR) 75 mg 24 hr capsule Take 1 capsule by mouth once daily. naproxen sodium (ALEVE) 220 mg tablet Take 1 tablet by mouth twice daily with meals. TAKE WITH FOOD divalproex DR (DEPAKOTE) 500 mg EC tablet Take 1 tablet by mouth once daily. No current facility-administered medications on file prior to visit. Social History Social History Tobacco Use Smoking status: Never Smokeless tobacco: Never Vaping Use Vaping Use: Never used Substance Use Topics Alcohol use: No Drug use: No REVIEW OF SYSTEMS: as above Reviewed relevant PMHx, PSHx, Social Hx, current medications and allergies. EXAM: BP 134/84 (BP Site: Left Arm) Pulse 82 Temp 37.6 C (99.6 F) (Right Tympanic) Resp 20 Ht 165.1 cm (5' 5 ) Wt 101.6 kg (224 lb) LMP 01/08/2022 SpO2 97% BMI 37.28 kg/m General Appearance: Well appearing, alert, in no acute distress, well-hydrated, well nourished.. Lungs: Lungs clear to auscultation. No wheezing, rhonchi, rales.. Heart: RRR without murmur, gallop, or rubs. No ectopy. Health Maintenance List HEPATITIS B(1 of 3 - 3-dose series) Never done DTAP,TDAP,TD(2 - Td or Tdap) due on 12/04/2019 COVID-19 VACCINE(3 - Booster for Pfizer series) due on 01/28/2021 DEPRESSION ASSESSMENT Never done INFLUENZA(1) due on 03/05/2022 PAP TESTING due on 01/16/2025 HEPATITIS C SCREENING Completed HIV SCREENING Completed ASSESSMENT/PLAN: 1. PCOS (polycystic ovarian syndrome) - ICD9: 256.4, ICD10: E28.2 (primary diagnosis) - HGB A1C - COMP METABOLIC PANEL - METFORMIN 500 MG TABLET 2. Need for influenza vaccination - ICD9: V04.81, ICD10: Z23 - INFLUENZA VACCINE QUADRIVALENT 6 MO - 64 YRS IM 3. Immunization due - ICD9: V05.9, ICD10: Z23 - PFIZER-BIONTECH COVID-19 BIVALENT BOOSTER VACCINE, AGE 12+ YR 4. Obesity, Class II, BMI 35-39.9 - ICD9: 278.00, ICD10: E66.9 - METFORMIN 500 MG TABLET 5. Elevated blood pressure reading without diagnosis of hypertension - ICD9: 796.2, ICD10: R03.0 - Encouraged dietary sodium restriction/DASH diet - Recommended regular aerobic exercise. - Recommend home blood pressure monitoring, to bring results in on next visit - Goal of BP <130/80 - PROPRANOLOL 60 MG TABLET 6. Encounter for immunization - ICD9: V03.89, ICD10: Z23 - TDAP VACCINE AGE 7+ IM 7. Weight gain - ICD9: 783.1, ICD10: R63.5 - METFORMIN 500 MG TABLET Erasmo Villagomez APRN.FRANSISCO RTO in 12 months, sooner if needed. This note was partly generated using [employer]WIN[employer] voice recognition dictation and may contain some misspelled or inaccurate words missed on review. documented in this encounter [facility] 06-15-2022 Miscellaneous Notes Pt has an appt today 06/15 @ 1 pm. Refills were contingent on pt coming in for appt. [facility] calls with these rx requests: Patient has been identified by name and date of : Yes Requested Prescriptions Pending Prescriptions Disp Refills propranolol (INDERAL) 60 mg tablet 56 tablet 11 Sig: Take 1 tablet by mouth twice daily. metFORMIN (GLUCOPHAGE) 500 mg tablet 56 tablet 11 Sig: Take 1 tablet by mouth twice daily with meals. RX INSTRUCTIONS: Pharmacy initiated this request. No need to notify patient. Giselle Montilla LPN documented in this encounter [facility] 06-12-2022 Miscellaneous Notes Pelvic US ordered Melecio Portillo MD Please let her know that breathing issues would not result from PCOS. She should contact primary care or go to ED for any urgent issues. Melecio Portillo MD documented in this encounter [facility] 05-25-2022 Miscellaneous Notes TC to patient. Unable to reach patient. Left VM to return call to office. Please advise-appointment incorrectly scheduled for a physical. Appointment scheduled in a 20 min spot. Offered 920 appointment for 40 minutes for a physical. Cancelled original appointment. MC message sent as well. Deanne Wallace MA documented in this encounter [facility] 05-21-2022 Miscellaneous Notes Pt no showed for appt today 05/21/22. No show letter mailed to pt home and detailed message left on pt identified VM that she missed her appt today. This is pt 2nd no show letter for 2021. Genny Fletcher Ma documented in this encounter [facility] 05-19-2022 Miscellaneous Notes 2 nd attempt left message to return call to schedule office visit for medication refills. My chart message sent. LVM for them to make f/u appt so prescriptions can be renewed. Patient last seen in office on 03/04/2020. Needs to make appointment with provider before medication can be renewed. Thank you, Maria Ines Aguirre RN documented in this encounter [facility] 01-23-2022 Miscellaneous Notes Discussed at appointment. Left message to call office FYI: Nexplanon was denied by patient's insurance for contraception. Patient has medicare / medicaid dual plan Patient has appointment 01/22/2022 at 9:00 am. documented in this encounter [facility] 01-22-2022 History of Presen t illness Narrative Juan Burnham is a 27 year old female who presents for control. HPI: Patient initially planned for nexplanon insertion. She has changed her mind & her insurance doesn't cover it. Also she wants something that will help with her PMS. OB History T0 L0 SAB0 IAB0 Ectopic0 Multiple0 Live Births0 Signal Maintainer History LMP: 01/08/2022, Having periods Age at Menarche: Age at First : Age at Menopause: Signal Maintainer History Comments: Sexual Activity: Not Currently; Male Contraception: PAST MEDICAL HISTORY Diagnosis Date Autistic disorder, current or active state Schizoaffective disorder (HCC) PAST SURGICAL HISTORY Procedure Laterality Date NONE FAMILY HISTORY Problem Relation Age of Onset Diabetes Maternal Grandmother Diabetes Maternal Grandfather Insulin shots Hypertension Maternal Grandfather Stroke Maternal Grandfather TIA's Diabetes Paternal Grandmother Heart Paternal Grandmother Diabetes Maternal Aunt Maternal great-aunt Stroke Maternal Uncle Social History Tobacco Use Smoking status: Never Smoker Smokeless tobacco: Never Used Vaping Use Vaping Use: Never used Substance Use Topics Alcohol use: No Drug use: No Current Outpatient Medications Medication Sig Etonogestrel-Ethinyl Estradiol (NUVARING) 0.12-0.015 mg/24 hr vaginal ring Use 1 Each vaginally as directed. INSERT ONE(1) RING VAGINALLY AND LEAVE IN PLACE FOR FOUR WEEKS, THEN REMOVE AND INSERT NEW NUVARING LATUDA 80 mg tablet LATUDA 20 mg tablet mv-min/iron/folic/calcium/vitK (WOMEN'S MULTIVITAMIN ORAL) Take by mouth. propranolol (INDERAL) 60 mg tablet TAKE 1 TABLET BY MOUTH TWICE A DAY metFORMIN (GLUCOPHAGE) 500 mg tablet TAKE 1 TABLET BY MOUTH TWICE A DAY WITH MEALS venlafaxine ER (EFFEXOR XR) 75 mg 24 hr capsule Take 1 capsule by mouth once daily. naproxen sodium (ALEVE) 220 mg tablet Take 1 tablet by mouth twice daily with meals. TAKE WITH FOOD divalproex DR (DEPAKOTE) 500 mg EC tablet Take 1 tablet by mouth once daily. No current facility-administered medications for this visit. Allergies As of Date: 01/22/2022 Allergen Noted Reaction CASEIN 08/31/2014 Mental Status Change CATS 02/25/2008 MILK 01/16/2022 Other: See Comments Fully Assessed 01/16/2022 Allergies and current medication updated:Yes EXAM: LMP 01/08/2022 GENERAL: pleasant, female in no apparent distress ASSESSMENT AND PLAN: Encounter Diagnosis ICD-10-CM 1. control counseling Z30.09 Discussed R/B/A of options and she wished to proceed with nuvaring. Use reviewed. Medical Decision Making: Problems: Low: 2+ self-limited or minor problems Risk: Moderate: Drug management Medical Decision Making Level: 3 - Low Melecio Portillo MD documented in this encounter [facility] 01-16-2022 Nurse Note I was present during the patient's physical exam by Dr. Portillo. Yulissa Huang MA documented in this encounter [facility] 01-16-2022 History of Presen t illness Narrative Juan is a 27 year old who presents for an annual gynecologic exam without complaints. She is interested in different control. Menses: cycles every 28 days and 5 days of flow. Contraception: combined hormonal contraceptives HPV vaccine: Yes Last Pap: 11/25/2018 normal HPV: N/A History of abnormal pap: No Last mammogram: never OB History T0 L0 SAB0 IAB0 Ectopic0 Multiple0 Live Births0 Signal Maintainer History LMP: 01/08/2022, Having periods Age at Menarche: Age at First : Age at Menopause: Signal Maintainer History Comments: Sexual Activity: Not Currently; Male Contraception: PAST MEDICAL HISTORY Diagnosis Date Autistic disorder, current or active state Schizoaffective disorder (HCC) PAST SURGICAL HISTORY Procedure Laterality Date NONE FAMILY HISTORY Problem Relation Age of Onset Diabetes Maternal Grandmother Diabetes Maternal Grandfather Insulin shots Hypertension Maternal Grandfather Stroke Maternal Grandfather TIA's Diabetes Paternal Grandmother Heart Paternal Grandmother Diabetes Maternal Aunt Maternal great-aunt Stroke Maternal Uncle SOCIAL HISTORY Social History Tobacco Use Smoking status: Never Smoker Smokeless tobacco: Never Used Vaping Use Vaping Use: Never used Substance Use Topics Alcohol use: No Drug use: No REVIEW OF SYSTEMS Abdomen: No abdominal pain, nausea, vomiting, diarrhea, or constipation. No bloating, early satiety, indigestion, or increased flatulence. Bladder: No dysuria, gross hematuria, urinary frequency, urinary urgency, or incontinence. Breast: No breast lumps, nipple d/c, overlying skin changes, redness or skin retraction. Allergies and current medication updated:Yes EXAM: BP 96/62 Ht 5' 5.354 (1.66m) Wt 217 lb (98.4kg) LMP 01/08/2022 BMI 35.72 kg/(m^2). GENERAL: pleasant, female in no apparent distress BREAST: soft, non-tender, symmetric, no dominant mass, normal nipple-areolar complex, no lymphadenopathy and no nipple discharge CHEST: Normal inspiratory effort ABDOMEN: soft, non-tender and no masses PELVIC: external genitalia normal, normal Bartholin's glands, urethra, [place]'s glands, no vulvar lesions, no cervical lesions, good vaginal support, physiologic discharge present, normal appearing perineal body and perianal region; patient had discomfort with exam (prior to exam patient counseled on R/B/A of speculum exam and she wished to proceed) BIMANUAL: deferred d/t discomfort with with speculum exam RECTOVAGINAL: deferred. NEURO: alert and oriented x3,exam grossly non-focal EXTREMITIES: normal ASSESSMENT/PLAN: 1) Health maintenance: Pap done with reflex HPV. Nutrition, exercise and routine health maintenance exams reviewed. 2) Contraception: Nexplanon. Contraceptive options reviewed and information provided. F/u for Nexplanon insertion 3) STD screening: Accepted STD check for Gonorrhea and Chlamydia with trich. 4) Follow up one year or sooner as needed Melecio Portillo MD documented in this encounter [facility] 03-11-2021 Miscellaneous Notes Patient is scheduled 03/21 with Erasmo Villagomez. Yolanda Santana Please help pt set up appt with pcp or supervisor filtration. Patient needs appt in the next 30 days. The following approved medication requests have been transmitted electronically. Signed Prescriptions Disp Refills metFORMIN (GLUCOPHAGE) 500 mg tablet 60 tablet 0 Sig: Take 1 tablet by mouth twice daily with meals. . NITESH: No Authorizing Provider: ERASMO VILLAGOMEZ APRN.CNP Patient has been identified by name and date of : Yes Pharmacy phones for refill(s): Pending Prescriptions Disp Refills METFORMIN 500 MG TABLET 60 tablet 11 Sig: Take 1 tablet by mouth twice daily with meals. . NITESH: No Date of last office visit with pcp: 03-04-20. Next appt: none- left detailed vm for patient to call back to schedule appt. Last 2 Encounter Wt Readings: Date: Wt: 04/02/2020 109.3 kg (241 lb) 03/04/2020 111.1 kg (245 lb) Previous labs/tests for medication: Diabetes: Hemoglobin A1C (%) Date Value 02/01/2020 5.0 Please advise. Thank you. Yvonne Stephens RN documented in this encounter [facility] Encounter for screening for malignant neoplasm of cervix- Primary Screening for malignant neoplasm of the cervix Screening examination for STD (sexually transmitted disease) Screening examination for venereal disease control counseling General counseling for initiation of other contraceptive measures [facility] Diagnosis control counseling- Primary General counseling for initiation of other contraceptive measures PMS (premenstrual syndrome) Premenstrual tension syndromes [facility] Diagnosis Weight gain Abnormal weight gain Obesity, Class II, BMI 35-39.9 Obesity, unspecified PCOS (polycystic ovarian syndrome) Polycystic ovaries [facility] Diagnosis Pelvic pain in female- Primary Unspecified symptom associated with female genital organs [facility] Diagnosis Weight gain Abnormal weight gain Obesity, Class II, BMI 35-39.9 Obesity, unspecified PCOS (polycystic ovarian syndrome) Polycystic ovaries documented in this encounter [facility] note* Diagnosis PCOS (polycystic ovarian syndrome)- Primary Polycystic ovaries Need for influenza vaccination Need for prophylactic vaccination and inoculation against influenza Immunization due Need for prophylactic vaccination and inoculation against unspecified single disease Obesity, Class II, BMI 35-39.9 Obesity, unspecified Elevated blood pressure reading without diagnosis of hypertension Encounter for immunization Need for other specified prophylactic vaccination against single bacterial disease Weight gain Abnormal weight gain documented in this encounter [facility] note* Diagnosis Encounter for gynecological examination (general) (routine) without abnormal findings- Primary documented in this encounter [facility] note* Diagnosis Hypertension, unspecified type- Primary Autistic disorder Autistic disorder, current or active state Bipolar affective disorder, remission status unspecified (HCC) Schizoaffective disorder, unspecified type (HCC) PCOS (polycystic ovarian syndrome) Polycystic ovaries Obesity, Class II, BMI 35-39.9 Obesity, unspecified Weight gain Abnormal weight gain Encounter for immunization Need for other specified prophylactic vaccination against single bacterial disease documented in this encounter [facility] note* Diagnosis Burning with urination- Primary Dysuria Vaginal discharge Leukorrhea, not specified as infective documented in this encounter [facility] for referral (narrative)* Outpatient Procedure (Routine) - Pending Review Specialty Diagnoses / Procedures Referred By Taco littlejohn Referred To Contact [facility] Diagnoses control counseling Procedures NEXPLANON INSERTION ETONOGESTREL IMPLANT SYSTEM INSERT DRUG IMPLANT DEVICE Melecio Portillo MD [address] [place] [address] [address] Referral ID Status Reason Start Date Expiration Date Visits Requested Visits Authorized [id number] Pending Review Auto-Generat ed Referral 01/16/2022 01/16/2023 1 1 [facility] for referral (narrative)* Diagnostic Procedure Only (Routine) - Pending Review Specialty Diagnoses / Procedures Referred By Taco littlejohn Referred To Contact [facility] Diagnoses Pelvic pain in female Procedures PELVIC US WHI US PELVIC NONOBSTETRIC REAL-TIME IMAGE COMPLETE Melecio Portillo MD [address] [place] [address] [facility] [place] [address] [place] [address] Referral ID Status Reason Start Date Expiration Date Visits Requested Visits Authorized [id number] Pending Review Auto-Generat ed Referral 06/12/2022 06/12/2023 1 1 * Diagnostic Procedure Only (Routine) - Pending Review Specialty Diagnoses / Procedures Referred By Contac t Referred To Contact [facility] Diagnoses Pelvic pain in female Procedures US FEMALE PELVIS TRANSABD LTD US PELVIC NONOBSTETRIC IMAGE DCMTN LIMITED/F/U Melecio Portillo MD [address] [place] [address] [facility] Referral ID Status Reason Start Date Expiration Date Visits Requested Visits Authorized [id number] Pending Review Auto-Generat ed Referral 06/12/2022 07/12/2023 1 1 * Diagnostic Procedure Only (Routine) - Pending Review Specialty Diagnoses / Procedures Referred By Contac t Referred To Contact [facility] Diagnoses Pelvic pain in female Procedures US FEMALE PELVIS TRANSVAG US TRANSVAGINAL Melecio Portillo MD [address] [place] [address] [facility] Referral ID Status Reason Start Date Expiration Date Visits Requested Visits Authorized [id number] Pending Review Auto-Generat ed Referral 06/12/2022 07/12/2023 1 1 [facility] Concerns Infection Onset Date Last Indicated Resolved Time COVID-19 Rule-Out 04/30/2021 04/30/2021 05/01/2021 7:53 AM EDT Advance Directives No Advanced Directives Records FoundDocuments on File Type Date Recorded Patient Crab Catcher Expl anation Advance Directive(s) 02/22/2012 4:51 PM Documents on File Type Date Recorded Patient Crab Catcher Expl anation Advance Directive(s) 02/22/2012 4:51 PM Summary Purpose Family History No Family History Records Found Additional Source Comments Source Comments (unrecognize d section and content) In the event this informatio n is protected by the Federal Confidentiality of Alcohol and Drug Abuse Patient Records regulations: The Federal rules restrict any use of the information to criminally investigate or prosecute any alcohol or drug abuse patient.[facility] event this information is protected by the Federal Confidentiality of Alcohol and Drug Abuse Patient Records regulations: The Federal rules restrict any use of the information to criminally investigate or prosecute any alcohol or drug abuse patient.[facility] HospitalIn the event this information is protected by the Federal Confidentiality of Alcohol and Drug Abuse Patient Records regulations: The Federal rules restrict any use of the information to criminally investigate or prosecute any alcohol or drug abuse patient.[facility] HospitalIn the event this information is protected by the Federal Confidentiality of Alcohol and Drug Abuse Patient Records regulations: The Federal rules restrict any use of the information to criminally investigate or prosecute any alcohol or drug abuse patient.[facility] HospitalIn the event this information is protected by the Federal Confidentiality of Alcohol and Drug Abuse Patient Records regulations: The Federal rules restrict any use of the information to criminally investigate or prosecute any alcohol or drug abuse patient.[facility] HospitalIn the event this information is protected by the Federal Confidentiality of Alcohol and Drug Abuse Patient Records regulations: The Federal rules restrict any use of the information to criminally investigate or prosecute any alcohol or drug abuse patient.[facility] HospitalIn the event this information is protected by the Federal Confidentiality of Alcohol and Drug Abuse Patient Records regulations: The Federal rules restrict any use of the information to criminally investigate or prosecute any alcohol or drug abuse patient.[facility] HospitalIn the event this information is protected by the Federal Confidentiality of Alcohol and Drug Abuse Patient Records regulations: The Federal rules restrict any use of the information to criminally investigate or prosecute any alcohol or drug abuse patient.[facility] HospitalIn the event this information is protected by the Federal Confidentiality of Alcohol and Drug Abuse Patient Records regulations: The Federal rules restrict any use of the information to criminally investigate or prosecute any alcohol or drug abuse patient.[facility] HospitalIn the event this information is protected by the Federal Confidentiality of Alcohol and Drug Abuse Patient Records regulations: The Federal rules restrict any use of the information to criminally investigate or prosecute any alcohol or drug abuse patient.[facility] HospitalIn the event this information is protected by the Federal Confidentiality of Alcohol and Drug Abuse Patient Records regulations: The Federal rules restrict any use of the information to criminally investigate or prosecute any alcohol or drug abuse patient.[facility] HospitalIn the event this information is protected by the Federal Confidentiality of Alcohol and Drug Abuse Patient Records regulations: The Federal rules restrict any use of the information to criminally investigate or prosecute any alcohol or drug abuse patient.[facility] HospitalIn the event this information is protected by the Federal Confidentiality of Alcohol and Drug Abuse Patient Records regulations: The Federal rules restrict any use of the information to criminally investigate or prosecute any alcohol or drug abuse patient.[facility] HospitalIn the event this information is protected by the Federal Confidentiality of Alcohol and Drug Abuse Patient Records regulations: The Federal rules restrict any use of the information to criminally investigate or prosecute any alcohol or drug abuse patient.[facility] HospitalIn the event this information is protected by the Federal Confidentiality of Alcohol and Drug Abuse Patient Records regulations: The Federal rules restrict any use of the information to criminally investigate or prosecute any alcohol or drug abuse patient.[facility] HospitalIn the event this information is protected by the Federal Confidentiality of Alcohol and Drug Abuse Patient Records regulations: The Federal rules restrict any use of the information to criminally investigate or prosecute any alcohol or drug abuse patient.[facility] HospitalIn the event this information is protected by the Federal Confidentiality of Alcohol and Drug Abuse Patient Records regulations: The Federal rules restrict any use of the information to criminally investigate or prosecute any alcohol or drug abuse patient.[facility] HospitalIn the event this information is protected by the Federal Confidentiality of Alcohol and Drug Abuse Patient Records regulations: The Federal rules restrict any use of the information to criminally investigate or prosecute any alcohol or drug abuse patient.[facility] Reason for Visit (unrecogniz ed section and content) Reason Comments Well Woman Specialty Diagnoses / Procedures Referred By Contac t Referred To Contact PLUMBER APPRENTICE Diagnoses New control pills E28.2 Procedures [facility] SPECIALIST OFFICE VISIT [id number] MD Andrew Thomas Karmon, MD [address] [place] [address] Referral ID Status Reason Start Date Expiration Date V isits Requested Visits Authorized [id number] Closed Financial Clearance Required - OON Payor Patient Cleared INN/[facility] Payor Auth Obtained 01/16/2022 03/30/2022 1 1 Reason Comments Vaginal Problem Specialty Diagnoses / Procedures Referred By Taco t Referred To Contact PLUMBER APPRENTICE Diagnoses Discuss Control Procedures EST WHI PATIENT Melecio Portillo MD [address] [place] [address] Melecio Portillo MD [address] [place] [address] Referral ID Status Reason Start Date Expiration Date V isits Requested Visits Authorized [id number] Pending Review 01/22/2022 04/22/2022 1 1 Reason Comments nexplanon Reason Onset Date Comments Refill Request 05/15/2022 Reason Comments no showed appt 05/21/22 no show Reason Comments Appointment Rescheduled Reason Onset Date Comments Refill Request 06/15/2022 Reason Onset Date Comments Immunizations 06/15/2022 Flu vaccination Follow Up Reason Onset Date Comments Population Health Navigation Outreach 09/01/2022 [facility] Care Gaps Reason Onset Date Comments Refill Request 02/16/2023 Reason Comments Well Woman Reason Comments 6 Month Exam Reason Comments Urinary Problem burning and pain wit h urination and pelvic pain x 5 days Reason Comments Results Care Teams (unrecognized sec tion and content) Nurseryman Assistant Relationship Specialty Start Date End Date Luisito Grullon MD [address] [place], [place] [id number] PCP - General Family Practice 03/04/20 Nurseryman Assistant Relationship Specialty Start Date End Date Luisito Grullon MD [address] [place], [place] [id number] PCP - General Family Practice 03/04/20 Nurseryman Assistant Relationship Specialty Start Date End Date Luisito Grullon MD [address] [place], [place] [id number] PCP - General Family Practice 03/04/20 Nurseryman Assistant Relationship Specialty Start Date End Date Luisito Grullon MD [address] [place], [place] [id number] PCP - General Family Medicine 03/04/20 Nurseryman Assistant Relationship Specialty Start Date End Date Luisito Grullon MD [address] [facility] [place] [address] PCP - General Family Medicine 03/04/20 Nurseryman Assistant Relationship Specialty Start Date End Date Luisito Grullon MD [address] [place] [address] PCP - General Family Medicine 03/04/20 Nurseryman Assistant Relationship Specialty Start Date End Date Luisito Grullon MD [address] [place] [address] PCP - General Family Medicine 03/04/20 Nurseryman Assistant Relationship Specialty Start Date End Date Luisito Grullon MD [address] [place] [address] PCP - General Family Medicine 03/04/20 Nurseryman Assistant Relationship Specialty Start Date End Date Luisito Grullon MD [address] [place] [address] PCP - General Family Medicine 03/04/20 Nurseryman Assistant Relationship Specialty Start Date End Date Luisito Grullon MD [address] [place] [address] PCP - General Family Medicine 03/04/20 Nurseryman Assistant Relationship Specialty Start Date End Date Luisito Grullon MD [address] [place] [address] PCP - General Family Medicine 03/04/20 Nurseryman Assistant Relationship Specialty Start Date End Date Luisito Grullon MD [address] [place] [address] PCP - General Family Medicine 03/04/20 Nurseryman Assistant Relationship Specialty Start Date End Date Luisito Grullon MD [address] [place] [address] PCP - General Family Medicine 03/04/20 INFORMATION SOURCE (unrecogn ized section and content) FOR RECORDS PERTAINING TO PATIENTS WHO ARE OR HAVE BEEN ENROLLED IN A CHEMICAL DEPENDENCY/SUBSTANCEABUSE PROGRAM, SOME INFORMATION MAY BE OMITTED. This clinical summary was aggregated from multiple sources. Caution should be exercised in using it in the provision of clinical care. This summary normalizes information from multiple sources, and as a consequence, information in this document may materially change the coding, format and clinical context of patient data. In addition, data may be omitted in some cases. CLINICAL DECISIONS SHOULD BE BASED ON THE PRIMARY CLINICAL RECORDS. [email or web address] provides no warranty or guarantee of the accuracy or completeness of information in this document.
== END 2023-08-03 17:00 | disposition left against medical advice (07) ==
LOC: ED 17:37
PROVIDERS: PCP Family Medicine
DX: Z53.21 Procedure and treatment not carried out due to patient leaving prior to being seen by health care provider (principal)